=== PATIENT | male | born 1950 | race Caucasian/White ===

== ENCOUNTER 2016-10-08 14:22 | Inpatient (IN) | payer BC, MEDICARE ==
[2016-10-08] MEDS ORDERED: ONDANSETRON 4 MG/2 ML VIAL IVP STA (16:30)
[2016-10-08] MEDS ORDERED: SODIUM CHLORIDE 0.9% 500 ML IV ONE (16:30)
--- NOTE | 2016-10-08 16:51 | ED ---
General Adult HPI - General Chief complaint: Shortness of Breath Stated complaint: Poss Pneumonia Time Seen by Provider: 10/08/16 16:19 Source: patient, RN notes reviewed Mode of arrival: wheelchair Limitations: no limitations - History of Present Illness Initial comments: This a 66-year-old male presents emergency Department chief complaint of not feeling well. Patient states she's had a cold like symptoms since . Patient states that he went to his primary care physician's office today who told him he most likely has pneumonia. Patient states he has had some cough and congestion. Patient states his cough is productive with phlegm. He states that he had some blood-tinged phlegm today. This was witnessed in the emergency room. Patient denies taking any Tylenol or Motrin today and states that he's had a fever at home. Patient states he has had some chest discomfort with his cough which has resolved. Patient denies any increased shortness breath at this time. Patient states he is a former smoker. Patient states with his cough is been having frequent headaches. Patient also complains over the last few days that he's had nausea, vomiting. He was able to keep some fluids down today. - Related Data Allergies Allergy/AdvReac Type Severity Reaction Status Date / Time No Known Allergies Allergy Verified 10/08/16 14:52 Review of Systems ROS Statement: Those systems with pertinent positive or pertinent negative responses have been documented in the HPI. ROS Other: All systems not noted in ROS Statement are negative. Past Medical History Past Medical History: Diabetes Mellitus, Hypertension, Renal Disease History of Any Multi-Drug Resistant Organisms: None Reported Past Surgical History: Back Surgery, Orthopedic Surgery Additional Past Surgical History / Comment(s): Right leg, right arm. Cataract surg Past Psychological History: No Psychological Hx Reported Smoking Status: Former smoker Past Alcohol Use History: None Reported Past Drug Use History: None Reported General Exam Limitations: no limitations General appearance: alert, in no apparent distress Head exam: Present: atraumatic, normocephalic, normal inspection Eye exam: Present: normal appearance, PERRL, EOMI. Absent: scleral icterus, conjunctival injection, periorbital swelling ENT exam: Present: normal exam, normal oropharynx, mucous membranes moist, TM's normal bilaterally, normal external ear exam Neck exam: Present: normal inspection, full ROM. Absent: tenderness, meningismus, lymphadenopathy Respiratory exam: Present: rhonchi (Left lower). Absent: respiratory distress, wheezes, rales, stridor Cardiovascular Exam: Present: regular rate, normal rhythm, normal heart sounds. Absent: systolic murmur, diastolic murmur, rubs, gallop, clicks Neurological exam: Present: alert, oriented X3, CN II-XII intact Skin exam: Present: warm, dry, intact, normal color. Absent: rash Course Vital Signs 10/08/16 10/08/16 14:48 18:59 Temperature 100.9 F H Pulse Rate 96 84 Respiratory 18 18 Rate Blood Pressure 152/63 117/56 O2 Sat by Pulse 94 L 95 Oximetry Medical Decision Making - Lab Data Result diagrams: 10/08/16 17:06 10/08/16 17:06 Lab Results 10/08/16 10/08/16 10/08/16 Range/Units 17:06 17:06 17:06 WBC 16.0 H (3.8-10.6) k/uL RBC 4.54 (4.30-5.90) m/uL Hgb 12.9 L (13.0-17.5) gm/dL Hct 38.4 L (39.0-53.0) % MCV 84.7 (80.0-100.0) fL MCH 28.4 (25.0-35.0) pg MCHC 33.5 (31.0-37.0) g/dL RDW 13.7 (11.5-15.5) % Plt Count 170 (150-450) k/uL Neutrophils % (Manual) 87.0 % Band Neutrophils % 4.0 % Lymphocytes % (Manual) 3.0 % Monocytes % (Manual) 6.0 % Neutrophils # (Manual) 14.6 H (1.3-7.7) k/uL Lymphocytes # (Manual) 0.5 L (1.0-4.8) k/uL Monocytes # (Manual) 1.0 (0-1.0) k/uL Nucleated RBCs 0 (0-0) /100 WBC Polychromasia Present D-Dimer (<0.60) mg/L FEU Sodium 137 (137-145) mmol/L Potassium 4.7 (3.5-5.1) mmol/L Chloride 97 L (98-107) mmol/L Carbon Dioxide 24 (22-30) mmol/L Anion Gap 16 mmol/L BUN 38 H (9-20) mg/dL Creatinine 2.00 H (0.66-1.25) mg/dL Est GFR (MDRD) Af Amer 41 (>60 ml/min/1.73 sqM) Est GFR (MDRD) Non-Af 34 (>60 ml/min/1.73 sqM) Glucose 181 H (74-99) mg/dL Plasma Lactic Acid Kelvin (0.7-2.0) mmol/L Calcium 8.5 (8.4-10.2) mg/dL Total Bilirubin 2.3 H (0.2-1.3) mg/dL AST 38 (17-59) U/L ALT 40 (21-72) U/L Alkaline Phosphatase 85 (38-126) U/L Total Creatine Kinase 310 H (55-170) U/L CK-MB (CK-2) 2.9 H* (0.0-2.4) ng/mL CK-MB (CK-2) Rel Index 0.9 Troponin I <0.012 (0.000-0.034) ng/mL Total Protein 6.6 (6.3-8.2) g/dL Albumin 3.7 (3.5-5.0) g/dL 10/08/16 10/08/16 Range/Units 17:06 17:06 WBC (3.8-10.6) k/uL RBC (4.30-5.90) m/uL Hgb (13.0-17.5) gm/dL Hct (39.0-53.0) % MCV (80.0-100.0) fL MCH (25.0-35.0) pg MCHC (31.0-37.0) g/dL RDW (11.5-15.5) % Plt Count (150-450) k/uL Neutrophils % (Manual) % Band Neutrophils % % Lymphocytes % (Manual) % Monocytes % (Manual) % Neutrophils # (Manual) (1.3-7.7) k/uL Lymphocytes # (Manual) (1.0-4.8) k/uL Monocytes # (Manual) (0-1.0) k/uL Nucleated RBCs (0-0) /100 WBC Polychromasia D-Dimer 2.28 H (<0.60) mg/L FEU Sodium (137-145) mmol/L Potassium (3.5-5.1) mmol/L Chloride (98-107) mmol/L Carbon Dioxide (22-30) mmol/L Anion Gap mmol/L BUN (9-20) mg/dL Creatinine (0.66-1.25) mg/dL Est GFR (MDRD) Af Amer (>60 ml/min/1.73 sqM) Est GFR (MDRD) Non-Af (>60 ml/min/1.73 sqM) Glucose (74-99) mg/dL Plasma Lactic Acid Kelvin 1.8 (0.7-2.0) mmol/L Calcium (8.4-10.2) mg/dL Total Bilirubin (0.2-1.3) mg/dL AST (17-59) U/L ALT (21-72) U/L Alkaline Phosphatase (38-126) U/L Total Creatine Kinase (55-170) U/L CK-MB (CK-2) (0.0-2.4) ng/mL CK-MB (CK-2) Rel Index Troponin I (0.000-0.034) ng/mL Total Protein (6.3-8.2) g/dL Albumin (3.5-5.0) g/dL Disposition Clinical Impression: Pneumonia, Pulmonary embolism Disposition: ADMITTED IP TO THIS [facility] Condition: Stable Time of Disposition: 19:02 Addendum entered and electronically signed by Adonis Claudio, PAC 10/08/16 19:05 : EKG performed at 17:17 normal sinus rhythm, incomplete right bundle servando block rate of 89. 132, respiration 98, QT/QTC 368/447
[2016-10-08] MEDS ORDERED: ACETAMINOPHEN TAB 500 MG TAB PO STA (16:59)
[2016-10-08 17:25] LABS: CH 28.6; CHCM 33.9; HCT 38.4 % (39.0-53.0); HDW 2.76; HGB 12.9 gm/dL (13.0-17.5); Immature Gran Flag Marked; MCH 28.4 pg (25.0-35.0); MCHC 33.5 g/dL (31.0-37.0); MCV 84.7 fL (80.0-100.0); Mean Platelet Volume 8.2; RBC 4.54 m/uL (4.30-5.90); RDW 13.7 % (11.5-15.5); WBC (Perox) 16.18
[2016-10-08 17:30] LABS: Calcium 8.5 mg/dL (8.4-10.2); Potassium 4.7 mmol/L (3.5-5.1); Total Bilirubin 2.3 mg/dL (0.2-1.3); Total Protein 6.6 g/dL (6.3-8.2)
[2016-10-08] MEDS ORDERED: RX INFO: IV CONTRAST WAS GIVEN 1 EACH MISC MISCELLANE PRN (17:33)
[2016-10-08 17:53] LABS: Add Differential Manual Differential
[2016-10-08 17:54] LABS: Creatine Kinase 310 U/L (55-170); Nucleated Red Blood Cells 0 /100 WBC (0-0); Polychromasia Present; Total Cells Counted 100
[2016-10-08 18:07] LABS: Troponin I <0.012 ng/mL (0.000-0.034)
[2016-10-08 18:08] LABS: Creatine Kinase MB 2.9 ng/mL (0.0-2.4)
--- NOTE | 2016-10-08 18:37 | XR ---
EXAMINATION TYPE: XR chest 2V DATE OF EXAM: 10/08/2016 5:46 PM COMPARISON: 07/01/2012 HISTORY: Cough and congestion TECHNIQUE: Frontal and lateral views of the chest are obtained. FINDINGS: Heart and mediastinum are normal. There is coarsening of interstitial markings with some p leural thickening at the left lung base. There are no hilar masses. There are chest leads. There is n o heart failure. There is spurring in the thoracic spine. IMPRESSION: Pulmonary fibrotic changes. There is increased pleural thickening at the left lung base and left lateral chest wall compared to last exam the probably relates to fibrosis. Normal heart.
--- NOTE | 2016-10-08 18:49 | NM ---
EXAMINATION TYPE: NM pul vent and perfuse DATE OF EXAM: 10/08/2016 6:38 PM COMPARISON: NONE HISTORY: TECHNIQUE: Utilizing inhalation of 71.5 mCi Tc 99m DTPA aerosol and intravenous injection of 5.36 mC i of Tc 99m MAA, ventilation and perfusion images are acquired post injection in multiple projections . FINDINGS: There is a matching ventilation perfusion defect involving the posterior left lower lobe. There is so me pleural thickening seen in this area on the chest x-ray today . I see no mismatch. The remainder of the exam is unremarkable. IMPRESSION: There is a segmental sized matching defect in the left lower lobe that corresponds to a low to interm ediate probability of pulmonary embolism.
[2016-10-08] MEDS ORDERED: RIVAROXABAN 15 MG TAB PO STA (19:01)
[2016-10-08] MEDS ORDERED: LEVOFLOXACIN 750MG-D5W PMX 750 MG in DEXTROSE/WATER 1 150ML.BAG IVPB STA (19:01)
[2016-10-08] MEDS ORDERED: PNEUMONIA PROTOCOL UTILIZED 1 EACH MISC PO PRN (19:03)
[2016-10-08 21:09] LABS: Glucose,Whole Blood 181 mg/dL (75-99)
[2016-10-09] MEDS ORDERED: HYDROmorphone 1 MG/ML 1 ML SYRINGE IVP PRN (00:29)
[2016-10-09] MEDS ORDERED: TEMAZEPAM 15 MG CAP PO PRN (00:30)
[2016-10-09] MEDS ORDERED: MELATONIN 3 MG TABLET PO PRN (00:42)
[2016-10-09] MEDS: INSULIN GLARGINE 100 UNIT/ML 10 ML VIAL SQ SCH ×2 (01:20→20:55)
[2016-10-09 01:29] LABS: Glucose,Whole Blood 184 mg/dL (75-99)
[2016-10-09] MEDS ORDERED: AZITHROMYCIN 500 MG in SODIUM CHLORIDE 0.9% 250 ML IVPB ONE (02:00)
[2016-10-09 06:34] LABS: Glucose,Whole Blood 183 mg/dL (75-99)
[2016-10-09] MEDS: RIVAROXABAN 15 MG TAB PO SCH ×2 (06:49→18:00)
[2016-10-09] MEDS: INSULIN LISPRO (humaLOG) 300 UNIT/3 ML VIAL SQ SCH ×4 (06:50→20:55)
[2016-10-09] MEDS: FORMOTEROL FUMARATE 20 MCG/2 ML NEBU INHALATION SCH ×2 (07:02→20:09)
[2016-10-09] MEDS: LEVALBUTEROL NEB 1.25 MG/3 ML AMP INHALATION SCH ×3 (07:02→20:10)
[2016-10-09] MEDS: BUDESONIDE 1 MG/2 ML NEBU INHALATION SCH ×2 (07:02→20:09)
[2016-10-09] MEDS: IPRATROPIUM 0.5 MG/2.5 ML NEBU INHALATION SCH ×4 (07:02→20:09)
--- NOTE | 2016-10-09 07:19 | XR ---
EXAMINATION TYPE: XR chest 2V DATE OF EXAM: 10/09/2016 6:22 AM COMPARISON: 10/08/2016 HISTORY: Pneumonia FINDINGS: Bilateral areas of consolidation particular attention to the right lower lobe. The region noted. Tiny bilateral effusions atrophic and degenerative change of the spine seen. IMPRESSION: 1. Persistent bilateral infiltrate correlate for pneumonia. Follow-up to resolution to exclude underl isaias neoplasm.
[2016-10-09] MEDS ORDERED: PANTOPRAZOLE 40 MG TABLET PO SCH (07:30)
[2016-10-09] MEDS ORDERED: NON-FORMULARY DRUG (Omega-3 Fatty Acids/Fish Oil [Fish Oil 1,000 Mg Softgel] 1 CAP) PO SCH (09:00)
[2016-10-09] MEDS ORDERED: NON-FORMULARY DRUG (Turmeric Root Extract [Turmeric] 500 MG) PO SCH (09:00)
[2016-10-09] MEDS ORDERED: NON-FORMULARY DRUG (Glucosamine Hcl/Chondr Su A Na [Osteo Bi-Flex Caplet] 1 TAB) PO SCH (09:00)
[2016-10-09] MEDS: ACETAMINOPHEN TAB 325 MG TAB PO PRN ×2 (09:24→20:44)
[2016-10-09] MEDS: LOSARTAN 25 MG TAB PO SCH (09:24)
[2016-10-09] MEDS: amLODIPine 5 MG TAB PO SCH (09:25)
[2016-10-09] MEDS: ATENOLOL 50 MG TAB PO SCH ×2 (09:25→20:44)
[2016-10-09] MEDS: CHOLECALCIFEROL 1,000 UNIT TAB PO SCH (09:27)
[2016-10-09] MEDS: ZINC GLUCONATE 50 MG TAB PO SCH (09:27)
[2016-10-09] MEDS: ASCORBIC ACID 500 MG TAB PO SCH (09:27)
[2016-10-09] MEDS: MULTIVITAMINS, THERA 1 EACH TAB PO SCH (09:27)
[2016-10-09] MEDS: DULoxetine HCL 60 MG CAPSULE.DR PO SCH ×2 (09:27→20:44)
[2016-10-09] MEDS: B COMPLEX-VIT C-VIT E-ZINC 1 EACH TAB PO SCH (09:27)
[2016-10-09] MEDS: ALPRAZolam 0.5 MG TAB PO PRN ×2 (10:13→21:46)
[2016-10-09 12:45] LABS: Glucose,Whole Blood 284 mg/dL (75-99)
[2016-10-09 13:57] LABS: Basophils % (A) 0 %; CH 28.3; Eosinophils % (A) 0 %; HCT 35.3 % (39.0-53.0); HDW 2.78; HGB 11.7 gm/dL (13.0-17.5); Luc # (Auto) 0.07; Luc % (Auto) 1; Lymphocytes # (A) 0.6 k/uL (1.0-4.8); Lymphocytes % (A) 4 %; MCH 28.4 pg (25.0-35.0); MCV 86.2 fL (80.0-100.0); Mean Platelet Volume 8.6; Monocytes # (A) 0.2 k/uL (0-1.0); Monocytes % (A) 2 %; Neutrophils % (A) 93 %; RDW 13.5 % (11.5-15.5); WBC 12.9 k/uL (3.8-10.6)
[2016-10-09 14:06] LABS: Calcium 8.3 mg/dL (8.4-10.2)
[2016-10-09 14:09] LABS: Potassium 4.1 mmol/L (3.5-5.1)
--- NOTE | 2016-10-09 15:52 | HP ---
DATE OF ADMISSION: 10/08/2016 Please note I am covering for Dr. Ishmael Simons. CHIEF COMPLAINT: Shortness of breath as well as some cough and fever. HISTORY OF PRESENT ILLNESS: This 66-year-old gentleman with a past history of COPD, diabetes and hypertension, history of back surgery, DJD being followed by Dr. Ishmael Simons. The patient not feeling well for the past several days. Patient initially had a cold which the patient received from his family members. The patient had a runny nose and feeling cold and subsequently patient had a fever, flushing and feeling tired, a cough, sputum and multiple other symptomatology and the patient came to [facility], admitted for further evaluation. Patient also had some blood-tinged sputum yesterday. Patient feeling hot and cold and patient was found to have right lower lobe pneumonia. Patient admitted for further evaluation and treatment. There is no history of hematochezia, melena. No history of any rash at this time. No history of recent travel. Influenza is being checked. PAST MEDICAL HISTORY: History of COPD, diabetes mellitus, hypertension, history of renal disease, history of back surgery, DJD. Medications prior to admission included: 1. Norvasc 5 mg p.o. daily. 3. Vitamin B 1 p.o. daily. 4. Turmeric 500 mcg p.o. daily. 5. Flomax 5 mg p.o. daily. 6. Zocor 40 mg p.o. every 6 hours. 7. Prilosec 20 mg a.c. b.i.d. 8. Fish oil 1 p.o. daily. 9. Multivitamin 1 p.o. daily. 10. Singulair 10 mg q.h.s. 11. Melatonin 3 mg q.h.s. 12. Cozaar 25 mg p.o. daily. 13. Apidra. 14. ACTH. 15. Lantus 50 units subcu q.h.s. 16. Osteo Bi-Flex 1 b.i.d. 17. Cymbalta 60 mg p.o. daily. 18. Vitamin D3 5000 units. 19. Rocaltrol 0.25 mcg q. 20. Tenormin 50 mg p.o. b.i.d. 21. Vitamin C 500 mg p.o. daily. 22. Xanax 0.5 b.i.d. p.r.n. Allergies are none. FAMILY HISTORY: No history of heart disease, strokes in the family. SOCIAL HISTORY: Previous history of smoking. No history of any smoking or alcohol intake. REVIEW OF SYSTEMS: HEENT: As mentioned earlier. CARDIOVASCULAR: No angina, palpitations. RESPIRATORY: As mentioned earlier. GI: No nausea. : No dysuria. NERVOUS: No numbness or weakness. ALLERGY/IMMUNOLOGY: No asthma or hay fever. MUSCULOSKELETAL: As mentioned earlier. HEMATOLOGY/ONCOLOGY: No history of anemia. ENDOCRINE: As mentioned earlier. CONSTITUTIONAL: As mentioned earlier. DERMATOLOGY: Negative. PSYCHIATRY: As mentioned earlier. PHYSICAL EXAMINATION: Alert and oriented x3. Pulse 84, blood pressure 170/60, respirations 18, temperature 97.9, pulse ox 94% on 2L. HEENT: Conjunctivae normal. Oral mucosa moist. Face is flushed. NECK: No jugular venous distention. No carotid bruit. No lymph node enlargement. CARDIOVASCULAR: S1 and S2 muffled. No S3. No S4. RESPIRATORY: Breath sounds diminished in the bases. Bilateral scattered rhonchi and crackles. Abdomen is soft, obese, nontender. No mass palpable. LEGS: No edema. No swelling. NERVOUS SYSTEM: Higher functions as mentioned. Moves all 4 limbs. No focal motor or sensory deficits. LYMPHATIC: No lymph node palpable in neck, axillae or groin. SKIN: No ulcer, rash or bleeding. Lab studies at this time show WBC 16. D-dimer is 2.28. Creatinine is 2. Creatine kinase 310. ASSESSMENT: 1. Acute right lower pneumonia, community-acquired with possible sepsis. 2. Increased WBC. 3. Anemia, normocytic. 4. Increased D-dimer with no evidence of pulmonary embolus. 5. Increased creatinine with possible acute renal failure, possible prerenal acute tubular necrosis. 6. Increased bilirubin. 7. Increased creatinine kinase. 8. Obesity with a body mass index of 36.5. 9. History of chronic obstructive pulmonary disease. 10. Diabetes mellitus type 2. 11. Hypertension. 12. Renal disease. 13. Degenerative joint disease. 14. History of cataract surgery. 15. Remote history of nicotine dependence. 16. FULL CODE. RECOMMENDATIONS AND DISCUSSION: In this 66-year-old gentleman who presented with multiple complex medical issues, we will monitor the patient closely. Continue the current medications. Continue with symptomatic treatment. Will initiate broad-spectrum IV antibiotics. Otherwise, I recommend Mycoplasma, Legionella studies and influenza studies, DVT prophylaxis. See orders for further details. Resume the home medications. Guarded prognosis because of complex medical issues. Further recommendations to follow. MTDD
[2016-10-09 16:56] LABS: Glucose,Whole Blood 80 mg/dL (75-99)
--- NOTE | 2016-10-09 16:57 | CT ---
EXAMINATION TYPE: CT chest wo con DATE OF EXAM: 10/09/2016 4:41 PM COMPARISON: NONE HISTORY: Consolidation right lower lobe. CT DLP: 421 mGycm Automated exposure control for dose reduction was used. FINDINGS: Multiple axial sections were obtained from the thoracic inlet to the diaphragm with no contrast. Exam was performed prone and supine. There is airspace patchy consolidation in both lower lobes in the paraspinal region. The upper lung f ields are fairly clear. Heart appears enlarged. There is no pericardial effusion. There is no pleural effusion. I see no mediastinal adenopathy. There are no definite hilar masses. Right lower lobe cons olidation is mostly in the superior segment. I do not see a pulmonary mass. IMPRESSION: THERE IS EVIDENCE OF BILATERAL LOWER LOBE PNEUMONIA WITH AIR BRONCHOGRAMS IN PULMONARY CONSOLIDATION. NO DEFINITE PULMONARY MASS IS SEEN. I DO NOT SEE ANY SIGNIFICANT INTERSTITIAL LUNG DISEASE. CARDIOME BANDAR.
[2016-10-09] MEDS: PANTOPRAZOLE 40 MG TABLET PO SCH (18:00)
[2016-10-09] MEDS ORDERED: LEVOFLOXACIN 750MG-D5W PMX 750 MG in DEXTROSE/WATER 1 150ML.BAG IVPB SCH (19:00)
[2016-10-09] MEDS: TAMSULOSIN 0.4 MG CAP.ER.24H PO SCH (20:44)
[2016-10-09] MEDS: MONTELUKAST 10 MG TAB PO SCH (20:44)
[2016-10-09] MEDS: ATORVASTATIN 20 MG TAB PO SCH (20:44)
[2016-10-09 20:53] LABS: Glucose,Whole Blood 94 mg/dL (75-99)
[2016-10-09] MEDS: cefTRIAXone 2,000 MG in SODIUM CHLORIDE 0.9% 100 ML IVPB SCH (21:45)
[2016-10-10 05:55] LABS: Glucose,Whole Blood 107 mg/dL (75-99)
[2016-10-10 06:48] LABS: Basophils % (A) 0 %; CH 29.2; CHCM 33.1; Eosinophils # (A) 0.1 k/uL (0-0.7); Eosinophils % (A) 1 %; HDW 2.88; HGB 11.6 gm/dL (13.0-17.5); Luc # (Auto) 0.12; Luc % (Auto) 1; Lymphocytes # (A) 0.8 k/uL (1.0-4.8); Lymphocytes % (A) 5 %; MCH 27.8 pg (25.0-35.0); MCHC 31.3 g/dL (31.0-37.0); MCV 88.8 fL (80.0-100.0); Monocytes # (A) 0.6 k/uL (0-1.0); Monocytes % (A) 4 %; Neutrophils # (A) 14.4 k/uL (1.3-7.7); Neutrophils % (A) 90 %; RBC 4.16 m/uL (4.30-5.90); WBC 16.1 k/uL (3.8-10.6)
[2016-10-10] MEDS: RIVAROXABAN 15 MG TAB PO SCH ×2 (07:01→18:28)
[2016-10-10] MEDS: PANTOPRAZOLE 40 MG TABLET PO SCH ×2 (07:01→18:28)
[2016-10-10] MEDS: INSULIN LISPRO (humaLOG) 300 UNIT/3 ML VIAL SQ SCH ×4 (07:01→20:28)
[2016-10-10 07:04] LABS: Calcium 8.7 mg/dL (8.4-10.2); Potassium 3.9 mmol/L (3.5-5.1)
[2016-10-10] MEDS: FORMOTEROL FUMARATE 20 MCG/2 ML NEBU INHALATION SCH ×2 (08:45→19:51)
[2016-10-10] MEDS: IPRATROPIUM 0.5 MG/2.5 ML NEBU INHALATION SCH ×4 (08:45→19:51)
[2016-10-10] MEDS: BUDESONIDE 1 MG/2 ML NEBU INHALATION SCH ×2 (08:45→19:51)
[2016-10-10] MEDS: LEVALBUTEROL NEB 1.25 MG/3 ML AMP INHALATION SCH ×3 (08:47→19:51)
[2016-10-10] MEDS: AZITHROMYCIN 500 MG in SODIUM CHLORIDE 0.9% 250 ML IVPB SCH (09:30)
[2016-10-10] MEDS: ASCORBIC ACID 500 MG TAB PO SCH (09:30)
[2016-10-10] MEDS: amLODIPine 5 MG TAB PO SCH (09:30)
[2016-10-10] MEDS: MULTIVITAMINS, THERA 1 EACH TAB PO SCH (09:31)
[2016-10-10] MEDS: LOSARTAN 25 MG TAB PO SCH (09:31)
[2016-10-10] MEDS: DULoxetine HCL 60 MG CAPSULE.DR PO SCH ×2 (09:31→20:23)
[2016-10-10] MEDS: CHOLECALCIFEROL 1,000 UNIT TAB PO SCH (09:31)
[2016-10-10] MEDS: ZINC GLUCONATE 50 MG TAB PO SCH (09:31)
[2016-10-10] MEDS: ATENOLOL 50 MG TAB PO SCH ×2 (09:32→20:23)
[2016-10-10 11:34] LABS: Glucose,Whole Blood 113 mg/dL (75-99)
--- NOTE | 2016-10-10 12:26 | PN ---
DATE OF SERVICE: 10/09/2016 I am covering for Dr. Ishmael Simons This 66 shortness of breath and cough found to have acute right lower lobe pneumonia. Pulmonary embolism also suspected and the patient was started on Xarelto from the ER. CT of the chest was done on recommendations of Dr. Sutherland which recommended evidence of bilateral lower lobe pneumonia with air bronchogram and pulmonary consultation. No evidence of pulmonary embolism was seen. The patient is being closely monitored. PAST MEDICAL HISTORY: Reviewed. REVIEW OF SYSTEMS: CARDIOVASCULAR: No angina or palpitations. RESPIRATORY: As mentioned earlier. GASTROINTESTINAL: As mentioned earlier. GENITOURINARY: No dysuria. CENTRAL NERVOUS SYSTEM: As mentioned earlier. Current medications are reviewed and include: 1. Tylenol 650 q.6 p.r.n. 2. Xanax 0.5 b.i.d. 3. Norvasc. 4. Vitamin C. 5. Tenormin. 6. Lipitor. 7. Zithromax. 8. Rocaltrol. 9. Rocephin. 10. Vitamin D3. 11. Perforomist. 12. Dilaudid. 13. Lantus. 14. Atrovent. 15. Xopenex. 16. Cozaar. 17. Melatonin. 18. Singulair. 19. Multivitamins. 20. Protonix. 21. Xarelto. PHYSICAL EXAMINATION: The patient is alert and oriented times three. Pulse 78, bp120/60. Respiratory rate 19, temperature 98.6. Pulse ox 94% on room air. HEENT: Conjunctivae normal. Oral mucosa moist. NECK: No jugular venous distention. No carotid bruit. No lymph node enlargement. CARDIOVASCULAR: S1, S2 muffled. No S3, no S4. RESPIRATORY: Breath sounds diminished at the bases. Bilateral scattered rhonchi and crackles. ABDOMEN: Soft, obese, nontender. No mass palpable. LEGS: No edema. No swelling. Nervous system: No focal deficit. LABS: WBC 12.5, hemoglobin 11.6, creatinine is 1.9, glucose 303 and 80. ASSESSMENT: 1. Acute bilateral pneumonia, right more than left with possible community acquired with possible sepsis, present on admission. 2. Increased WBC. 3. Anemia, normocytic, 4. Increased d-dimer with no evidence of pulmonary embolism. 5. Increased creatinine with possible acute renal failure, possibly prerenal acute tubular necrosis 6. Increased bilirubin. 7. Increased creatinine kinase. 8. Obesity, body mass index 36.5. 9. History of chronic obstructive pulmonary disease. 10. Diabetes mellitus type 2. 11. Hypertension. 12. History of chronic renal disease. 13. Degenerative joint disease. 14. History of cataract surgery. 15. Remote history of nicotine dependence. 16. FULL CODE. RECOMMENDATIONS AND DISCUSSION: In this 60-year-old gentleman who presented with multiple complex medical issues, we will monitor the patient closely, continue the current medications, continue symptomatic treatment, continue with broad spectrum antibiotics. Follow the cultures. Otherwise, the most recent chest x-ray done today this morning showed persistent bilateral infiltrates. Otherwise, creatinine is 1.90 at this time. I would recommend continued follow up with antibiotics and continue the rest of the medications and Xarelto per Dr. Sutherland, will be evaluated per Dr. Sutherland. Prognosis guarded because of multiple complex medical issues. Discussed with the patient who understands and agrees. Further recommendations to follow. MTDD
--- NOTE | 2016-10-10 12:37 | P.CNPUL ---
History of Present Illness Consult date: 10/09/16 Requesting physician: Kathryn Hayes Reason for consult: pneumonia Chief complaint: Shortness of breath, productive cough, and fever. History of present illness: This is a 66-year-old white male with history of multiple medical problems including COPD, diabetes, hypertension, chronic renal disease, patient presented with several days history of cough, fever, weakness, and not feeling well. Patient described her cough as productive with yellow phlegm, no hemoptysis, no chest pain. Patient was hoping that his symptoms will resolve on their own because he felt they were like flulike symptoms. But his symptoms seemed to progress and get worse. Hence he presented to the ER with mostly worsening shortness of breath and cough as well as fever and chills. Chest x- ray showed coarse interstitial markings and pleural thickening mostly at the left base. However CT of the chest which I ordered upon my evaluation showed severe bilateral pneumonia with air bronchograms in both lower lobes. And in the paraspinal region. Most of the findings in the right lower lobe were noted to be in the superior segment. Patient was placed on broad-spectrum antibiotics for community-acquired pneumonia and is presently on Rocephin and Zithromax. Over the last 24 hours, the patient has made a slight improvement. Review of Systems 12 point review of systems were obtained, please refer to pertinent positives and negatives in HPI Past Medical History Past Medical History: COPD, Diabetes Mellitus, Hypertension, Renal Disease History of Any Multi-Drug Resistant Organisms: None Reported Past Surgical History: Back Surgery, Orthopedic Surgery Additional Past Surgical History / Comment(s): Right leg, right arm. Cataract surg Past Anesthesia/Blood Transfusion Reactions: No Reported Reaction Past Psychological History: No Psychological Hx Reported Smoking Status: Former smoker Past Alcohol Use History: None Reported Past Drug Use History: None Reported Medications and Allergies Home Medications Medication Instructions Recorded Confirmed Type ALPRAZolam [Xanax] 0.5 mg PO BID PRN 10/08/16 10/08/16 History Ascorbic Acid [Vitamin C] 500 mg PO DAILY 10/08/16 10/08/16 History Atenolol [Tenormin] 50 mg PO BID 10/08/16 10/08/16 History Calcitriol [Rocaltrol] 0.25 mcg PO TUFR 10/08/16 10/08/16 History Cholecalciferol [Vitamin D3] 5,000 unit PO DAILY 10/08/16 10/08/16 History DULoxetine HCL [Cymbalta] 60 mg PO BID 10/08/16 10/08/16 History Glucosamine HCl/Chondr Ross A Na 1 tab PO BID 10/08/16 10/08/16 History [Osteo Bi-Flex Caplet] Insulin Glargine [Lantus] 50 unit SQ HS 10/08/16 10/08/16 History Insulin Glulisine [Apidra] See Protocol SQ AC-TID 10/08/16 10/08/16 History Losartan [Cozaar] 25 mg PO DAILY 10/08/16 10/08/16 History Melatonin 3 mg PO HS PRN 10/08/16 10/08/16 History Montelukast [Singulair] 10 mg PO HS 10/08/16 10/08/16 History Multivitamins, Thera [Multivitamin] 1 tab PO DAILY 10/08/16 10/08/16 History [place]-3 Fatty Acids/Fish Oil [Fish 1 cap PO DAILY 10/08/16 10/08/16 History Oil 1,000 mg Softgel] Omeprazole [PriLOSEC] 20 mg PO AC-BID 10/08/16 10/08/16 History Simvastatin [Zocor] 40 mg PO HS 10/08/16 10/08/16 History Tamsulosin HCl [Flomax] 0.4 mg PO HS 10/08/16 10/08/16 History Turmeric Root Extract [Turmeric] 500 mg PO DAILY 10/08/16 10/08/16 History Vitamin B Complex 1 cap PO DAILY 10/08/16 10/08/16 History Zinc 50 mg PO DAILY 10/08/16 10/08/16 History amLODIPine [Norvasc] 5 mg PO DAILY 10/08/16 10/08/16 History Allergies Allergy/AdvReac Type Severity Reaction Status Date / Time No Known Allergies Allergy Verified 10/08/16 19:25 Physical Exam Vitals: Vital Signs Temp Pulse Pulse Pulse Resp BP BP 10/10/16 09:24 99.3 F 76 12 130/59 10/10/16 09:05 76 10/10/16 08:57 76 10/10/16 08:55 80 10/10/16 08:45 80 10/10/16 04:00 98.1 F 72 18 131/57 10/10/16 00:00 97.6 F 82 18 142/78 10/09/16 20:00 97.6 F 82 18 149/70 10/09/16 16:00 98.6 F 81 18 135/65 10/09/16 13:13 73 10/09/16 12:59 73 Pulse Ox 10/10/16 09:24 95 10/10/16 09:05 10/10/16 08:57 10/10/16 08:55 10/10/16 08:45 10/10/16 04:00 92 L 10/10/16 00:00 92 L 10/09/16 20:00 92 L 10/09/16 16:00 94 L 10/09/16 13:13 10/09/16 12:59 Intake and Output 10/09/16 10/10/16 10/10/16 22:59 06:59 14:59 Intake Total 115 Output Total 400 700 Balance -285 -700 Intake: Oral 115 Output: Urine 400 700 Other: Voiding Method Toilet Toilet Urinal Urinal Weight 119 kg Physical Exam: Revealed a 66-year-old white male slightly anxious but in no distress. HEENT:[Neck is supple.] [No neck masses.] [No thyromegaly.] [No JVD.] Chest: [Crackles and rhonchi noted at the bases bilaterally Cardiac Exam: [Normal S1 and S2, no S3 gallop, no murmur.] Abdomen: [Soft, nontender, no megaly, no rebound, no guarding, normal bowel sounds.] Extremities: [No clubbing, no edema, no cyanosis.] Neurological Exam: [No focal neurologic deficit.] Results - Laboratory Findings CBC and BMP: 10/10/16 06:11 10/10/16 06:11 PT/INR, D-dimer D-Dimer 2.28 mg/L FEU (<0.60) H 10/08/16 17:06 Abnormal lab findings: Abnormal Labs 10/08/16 10/09/16 10/09/16 21:08 01:09 06:28 WBC RBC Hgb Hct Neutrophils # Lymphocytes # BUN Creatinine Glucose POC Glucose (mg/dL) 181 H 184 H 183 H Calcium 10/09/16 10/09/16 10/09/16 12:43 13:34 13:34 WBC 12.9 H RBC 4.10 L Hgb 11.7 L Hct 35.3 L Neutrophils # 12.0 H Lymphocytes # 0.6 L BUN 39 H Creatinine 1.90 H Glucose 303 H POC Glucose (mg/dL) 284 H Calcium 8.3 L 10/10/16 10/10/16 10/10/16 05:51 06:11 06:11 WBC 16.1 H RBC 4.16 L Hgb 11.6 L Hct 37.0 L Neutrophils # 14.4 H Lymphocytes # 0.8 L BUN 37 H Creatinine 2.00 H Glucose 119 H POC Glucose (mg/dL) 107 H Calcium 10/10/16 11:30 WBC RBC Hgb Hct Neutrophils # Lymphocytes # BUN Creatinine Glucose POC Glucose (mg/dL) 113 H Calcium - Diagnostic Findings CT scan - chest: image reviewed (Bibasilar pneumonia/consolidation noted with air bronchogram.) Assessment and Plan Plan: Impression: 1 acute by basilar pneumonia, community-acquired, possibly gram-negative considering the patient's history of COPD. 2 multiple comorbidities including COPD, acute on chronic renal failure, diabetes type 2, hypertension, degenerative joint disease, and remote history of smoking. Recommendation: Continue present treatment plan including updrafts in the form of albuterol and Atrovent, Pulmicort, Perforomist, continue Rocephin and Zithromax, consider adding Solu-Medrol if the patient develops any worsening wheezing. We'll continue to follow, and repeat chest x-ray in the next couple of days. Time with Patient: Greater than 30
--- NOTE | 2016-10-10 12:40 | P.PN ---
Subjective Principal diagnosis: By basilar pneumonia This is a 66-year-old white male with history of multiple medical problems including COPD, diabetes, hypertension, chronic renal disease, patient presented with several days history of cough, fever, weakness, and not feeling well. Patient described her cough as productive with yellow phlegm, no hemoptysis, no chest pain. Patient was hoping that his symptoms will resolve on their own because he felt they were like flulike symptoms. But his symptoms seemed to progress and get worse. Hence he presented to the ER with mostly worsening shortness of breath and cough as well as fever and chills. Chest x- ray showed coarse interstitial markings and pleural thickening mostly at the left base. However CT of the chest which I ordered upon my evaluation showed severe bilateral pneumonia with air bronchograms in both lower lobes. And in the paraspinal region. Most of the findings in the right lower lobe were noted to be in the superior segment. Patient was placed on broad-spectrum antibiotics for community-acquired pneumonia and is presently on Rocephin and Zithromax. Over the last 24 hours, the patient has made a slight improvement. Reevaluated today again, patient is feeling a bit better, breathing a bit easier. He had a T-max of 99.3. Hemodynamically stable continues to have leukocytosis with WBC of 16.1, renal profile showed a BUN of 57 creatinine of 2.0. Otherwise labs are relatively unremarkable. Clinically the patient is showing some improvement. Objective - Vital Signs Vital signs: Vital Signs Temp 99.3 F 10/10/16 09:24 Pulse 76 10/10/16 09:24 Resp 12 10/10/16 09:24 BP 130/59 10/10/16 09:24 Pulse Ox 95 10/10/16 09:24 Intake & Output 10/09/16 10/10/16 10/10/16 18:59 06:59 18:59 Intake Total 395 Output Total 500 1100 Balance -105 -1100 Weight 119 kg Intake: Oral 395 Output: Urine 500 1100 Other: Voiding Method Toilet Urinal - Exam Physical Exam: Revealed a 66-year-old white male slightly anxious but in no distress. HEENT:[Neck is supple.] [No neck masses.] [No thyromegaly.] [No JVD.] Chest: [Crackles and rhonchi noted at the bases bilaterally Cardiac Exam: [Normal S1 and S2, no S3 gallop, no murmur.] Abdomen: [Soft, nontender, no megaly, no rebound, no guarding, normal bowel sounds.] Extremities: [No clubbing, no edema, no cyanosis.] Neurological Exam: [No focal neurologic deficit.] - Labs CBC & Chem 7: 10/10/16 06:11 10/10/16 06:11 Labs: Abnormal Lab Results - Last 24 Hours (Table) 10/09/16 10/09/16 10/09/16 Range/Units 12:43 13:34 13:34 WBC 12.9 H (3.8-10.6) k/uL RBC 4.10 L (4.30-5.90) m/uL Hgb 11.7 L (13.0-17.5) gm/dL Hct 35.3 L (39.0-53.0) % Neutrophils # 12.0 H (1.3-7.7) k/uL Lymphocytes # 0.6 L (1.0-4.8) k/uL BUN 39 H (9-20) mg/dL Creatinine 1.90 H (0.66-1.25) mg/dL Glucose 303 H (74-99) mg/dL POC Glucose (mg/dL) 284 H (75-99) mg/dL Calcium 8.3 L (8.4-10.2) mg/dL 10/10/16 10/10/16 10/10/16 Range/Units 05:51 06:11 06:11 WBC 16.1 H (3.8-10.6) k/uL RBC 4.16 L (4.30-5.90) m/uL Hgb 11.6 L (13.0-17.5) gm/dL Hct 37.0 L (39.0-53.0) % Neutrophils # 14.4 H (1.3-7.7) k/uL Lymphocytes # 0.8 L (1.0-4.8) k/uL BUN 37 H (9-20) mg/dL Creatinine 2.00 H (0.66-1.25) mg/dL Glucose 119 H (74-99) mg/dL POC Glucose (mg/dL) 107 H (75-99) mg/dL Calcium (8.4-10.2) mg/dL 10/10/16 Range/Units 11:30 WBC (3.8-10.6) k/uL RBC (4.30-5.90) m/uL Hgb (13.0-17.5) gm/dL Hct (39.0-53.0) % Neutrophils # (1.3-7.7) k/uL Lymphocytes # (1.0-4.8) k/uL BUN (9-20) mg/dL Creatinine (0.66-1.25) mg/dL Glucose (74-99) mg/dL POC Glucose (mg/dL) 113 H (75-99) mg/dL Calcium (8.4-10.2) mg/dL Assessment and Plan Plan: Impression: 1 acute by basilar pneumonia, community-acquired, possibly gram-negative considering the patient's history of COPD. 2 multiple comorbidities including COPD, acute on chronic renal failure, diabetes type 2, hypertension, degenerative joint disease, and remote history of smoking. Recommendation: Continue present treatment plan including updrafts in the form of albuterol and Atrovent, Pulmicort, Perforomist, continue Rocephin and Zithromax, consider adding Solu-Medrol if the patient develops any worsening wheezing. We'll continue to follow, and repeat chest x-ray in the next couple of days. Time with Patient: Less than 30
[2016-10-10] MEDS: B COMPLEX-VIT C-VIT E-ZINC 1 EACH TAB PO SCH (13:02)
[2016-10-10] MEDS: ACETAMINOPHEN TAB 325 MG TAB PO PRN (14:19)
[2016-10-10 16:59] LABS: Glucose,Whole Blood 151 mg/dL (75-99)
[2016-10-10] MEDS: ALPRAZolam 0.5 MG TAB PO PRN (18:44)
[2016-10-10] MEDS: ATORVASTATIN 20 MG TAB PO SCH (20:23)
[2016-10-10] MEDS: TAMSULOSIN 0.4 MG CAP.ER.24H PO SCH (20:23)
[2016-10-10] MEDS: MONTELUKAST 10 MG TAB PO SCH (20:23)
[2016-10-10] MEDS: INSULIN GLARGINE 100 UNIT/ML 10 ML VIAL SQ SCH (20:24)
[2016-10-10 20:28] LABS: Glucose,Whole Blood 165 mg/dL (75-99)
[2016-10-10] MEDS: cefTRIAXone 2,000 MG in SODIUM CHLORIDE 0.9% 100 ML IVPB SCH (21:30)
[2016-10-11 05:59] LABS: Glucose,Whole Blood 67 mg/dL (75-99)
[2016-10-11] MEDS: INSULIN LISPRO (humaLOG) 300 UNIT/3 ML VIAL SQ SCH ×4 (06:02→21:30)
[2016-10-11 06:11] LABS: Glucose,Whole Blood 64 mg/dL (75-99)
[2016-10-11] MEDS: RIVAROXABAN 15 MG TAB PO SCH ×2 (06:41→17:46)
[2016-10-11] MEDS: PANTOPRAZOLE 40 MG TABLET PO SCH ×2 (06:42→17:46)
[2016-10-11 06:55] LABS: Glucose,Whole Blood 80 mg/dL (75-99)
[2016-10-11 07:00] LABS: Basophils % (A) 0 %; CH 28.2; CHCM 32.8; Eosinophils # (A) 0.4 k/uL (0-0.7); Eosinophils % (A) 3 %; HCT 35.7 % (39.0-53.0); HDW 2.91; HGB 11.6 gm/dL (13.0-17.5); Luc # (Auto) 0.16; Luc % (Auto) 1; Lymphocytes # (A) 1.3 k/uL (1.0-4.8); Lymphocytes % (A) 11 %; MCH 28.2 pg (25.0-35.0); MCHC 32.6 g/dL (31.0-37.0); MCV 86.4 fL (80.0-100.0); Mean Platelet Volume 7.9; Monocytes # (A) 0.6 k/uL (0-1.0); Monocytes % (A) 5 %; Neutrophils # (A) 9.7 k/uL (1.3-7.7); Neutrophils % (A) 80 %; RBC 4.13 m/uL (4.30-5.90); RDW 13.7 % (11.5-15.5); WBC 12.2 k/uL (3.8-10.6); WBC (Perox) 12.67
[2016-10-11 07:36] LABS: Calcium 8.6 mg/dL (8.4-10.2); Potassium 3.9 mmol/L (3.5-5.1)
[2016-10-11] MEDS: LEVALBUTEROL NEB 1.25 MG/3 ML AMP INHALATION SCH ×3 (08:05→20:00)
[2016-10-11] MEDS: BUDESONIDE 1 MG/2 ML NEBU INHALATION SCH ×2 (08:05→19:59)
[2016-10-11] MEDS: IPRATROPIUM 0.5 MG/2.5 ML NEBU INHALATION SCH ×4 (08:05→20:00)
[2016-10-11] MEDS: FORMOTEROL FUMARATE 20 MCG/2 ML NEBU INHALATION SCH ×2 (08:06→20:00)
[2016-10-11] MEDS: ASCORBIC ACID 500 MG TAB PO SCH (09:13)
[2016-10-11] MEDS: CHOLECALCIFEROL 1,000 UNIT TAB PO SCH (09:13)
[2016-10-11] MEDS: amLODIPine 5 MG TAB PO SCH (09:13)
[2016-10-11] MEDS: ATENOLOL 50 MG TAB PO SCH ×2 (09:13→20:30)
[2016-10-11] MEDS: AZITHROMYCIN 500 MG in SODIUM CHLORIDE 0.9% 250 ML IVPB SCH (09:14)
[2016-10-11] MEDS: MULTIVITAMINS, THERA 1 EACH TAB PO SCH (09:14)
[2016-10-11] MEDS: ZINC GLUCONATE 50 MG TAB PO SCH (09:14)
[2016-10-11] MEDS: LOSARTAN 25 MG TAB PO SCH (09:14)
[2016-10-11] MEDS: DULoxetine HCL 60 MG CAPSULE.DR PO SCH ×2 (09:14→20:31)
[2016-10-11] MEDS: B COMPLEX-VIT C-VIT E-ZINC 1 EACH TAB PO SCH (11:22)
--- NOTE | 2016-10-11 11:51 | PN ---
DATE OF SERVICE: 10/10/2016 I am covering for Dr. Ishmael Simons. This 66-year-old gentleman who was admitted with shortness of breath and cough was thought to have pneumonia. Patient thought to have possibly bibasilar pneumonia. The patient also had features of sepsis also. The patient has multiple comorbidities. Patient is on broad spectrum IV antibiotics. Dr. Sutherland is following the patient closely. PAST MEDICAL HISTORY: Reviewed. REVIEW OF SYSTEMS: CARDIOVASCULAR No angina. RESPIRATORY: As mentioned earlier. GI: As mentioned earlier. : No dysuria. NERVOUS SYSTEM: No numbness or weakness. Current medications are: 1. Tylenol 650 q.6 p.r.n. 2. Xanax 0.5 b.i.d. 3. Norvasc 5 mg p.o. daily. 4. Vitamin C 500 mg p.o. daily. 5. Tenormin 50 mg p.o. daily. 6. Lipitor 20 mg q.h.s. 7. Zithromax 500 mg IV daily. 8. Pulmicort 1 mg b.i.d. 10. Zosyn 1 gram IV daily. 11. Vitamin D3, 5000. 12. Cymbalta 60 mg p.o. b.i.d. 13. Perforomist 20 mcg b.i.d. 14. Dilaudid 0.5 mg q.6 p.r.n. 15. Lantus 50 units subcu q.h.s. 16. Humalog scale. 17. Xopenex 1.25 t.i.d. 18. Cozaar 25 mg daily. 19. Melatonin 3 mg q.h.s. p.r.n. 20. Singulair. 21. Multivitamin. 22. Protonix. 23. Xarelto. 24. Flomax. 25. Z-BEC. PHYSICAL EXAMINATION: Patient is alert and oriented x3. Pulse 66, blood pressure 130/72, respirations 14, temperature 97.9, pulse ox 90% on 2-L. HEENT: Conjunctivae normal. Oral mucosa moist. NECK: No jugular venous distention. No carotid bruit. No lymph node enlargement. CARDIOVASCULAR: S1 and S2, muffled. RESPIRATORY: Breath sounds diminished at the bases. A few scattered rhonchi and crackles, left more than the right. ABDOMEN: Soft, obese, nontender. LEGS: No edema, no swelling. NERVOUS SYSTEM: Higher function as mentioned. Moves all four limbs. No focal motor deficits. LYMPHATIC: No lymphadenopathy in the neck, axillae or groin. SKIN: No ulcer, rash or bleeding. LABS: WBC 16.9, hemoglobin 11.6. Creatinine is 2, Accu-Cheks noted. ASSESSMENT: 1. Acute bilateral pneumonia, right more than left, with possible gram-negative with possible sepsis, present on admission. 2. Increased WBC secondary to sepsis. 3. Anemia, normocytic, 4. Increased d-dimer with no evidence of pulmonary embolus. 5. Increased creatinine with possible acute renal failure, possible prerenal acute tubular necrosis. 6. Increased bilirubin. 7. Increased creatine kinase. 8. Obesity, body mass index of 36.5. 9. History of chronic obstructive pulmonary disease. 10. Diabetes mellitus type 2. 11. Hypertension. 12. History of chronic renal disease. 13. Degenerative joint disease. 14. History of cataract surgery. 15. Remote history of nicotine dependence. 16. FULL CODE. RECOMMENDATIONS AND DISCUSSION: In this 66-year-old gentleman who presented with multiple complex medical issues, will monitor the patient closely. Continue the current bronchodilators. Continue incentive spirometry and antibiotic treatment. Dr. Sutherland's input appreciated. Cultures are negative so far. Will recommend repeat labs. WBC is still elevated. Prognosis guarded because of multiple complex medical issues, which I discussed at length with the family at the bedside and the family understands. Further recommendations to follow. KRISTIED
[2016-10-11 11:57] LABS: Glucose,Whole Blood 211 mg/dL (75-99)
[2016-10-11] MEDS ORDERED: INSULIN LISPRO (humaLOG) 300 UNIT/3 ML VIAL SQ ONE (14:40)
--- NOTE | 2016-10-11 15:01 | P.PN ---
Subjective Principal diagnosis: bi basilar pneumonia This is a 66-year-old white male with history of multiple medical problems including COPD, diabetes, hypertension, chronic renal disease, patient presented with several days history of cough, fever, weakness, and not feeling well. Patient described her cough as productive with yellow phlegm, no hemoptysis, no chest pain. Patient was hoping that his symptoms will resolve on their own because he felt they were like flulike symptoms. But his symptoms seemed to progress and get worse. Hence he presented to the ER with mostly worsening shortness of breath and cough as well as fever and chills. Chest x- ray showed coarse interstitial markings and pleural thickening mostly at the left base. However CT of the chest which I ordered upon my evaluation showed severe bilateral pneumonia with air bronchograms in both lower lobes. And in the paraspinal region. Most of the findings in the right lower lobe were noted to be in the superior segment. Patient was placed on broad-spectrum antibiotics for community-acquired pneumonia and is presently on Rocephin and Zithromax. Over the last 24 hours, the patient has made a slight improvement. Reevaluated today again, patient is feeling a bit better, breathing a bit easier. He had a T-max of 99.3. Hemodynamically stable continues to have leukocytosis with WBC of 16.1, renal profile showed a BUN of 57 creatinine of 2.0. Otherwise labs are relatively unremarkable. Clinically the patient is showing some improvement. Reevaluated today on 10/11/2016, patient is feeling better, breathing a bit easier. Continues to have cough and continues to have crackles at the bases bilaterally. His fever seems to have resolved, his temp today is 97.7. His WBC count is down to 12.2. And the rest of the labs were unremarkable. Creatinine seems to be improving it is down to 1.80 from 2.0 on admission. Objective - Vital Signs Vital signs: Vital Signs Temp 97.7 F 10/11/16 13:06 Pulse 71 10/11/16 13:06 Resp 18 10/11/16 13:06 BP 154/77 10/11/16 13:06 Pulse Ox 99 10/11/16 13:06 Intake & Output 10/10/16 10/11/16 10/11/16 18:59 06:59 18:59 Output Total 600 2450 Balance -600 -2450 Weight 119 kg Output: Urine 600 2450 Other: Voiding Method Toilet Toilet Urinal Urinal # Voids 1 1 - Exam Physical Exam: Revealed a 66-year-old white male slightly anxious but in no distress. HEENT:[Neck is supple.] [No neck masses.] [No thyromegaly.] [No JVD.] Chest: [Crackles and rhonchi noted at the bases bilaterally Cardiac Exam: [Normal S1 and S2, no S3 gallop, no murmur.] Abdomen: [Soft, nontender, no megaly, no rebound, no guarding, normal bowel sounds.] Extremities: [No clubbing, no edema, no cyanosis.] Neurological Exam: [No focal neurologic deficit.] - Labs CBC & Chem 7: 10/11/16 06:04 10/11/16 06:04 Labs: Abnormal Lab Results - Last 24 Hours (Table) 10/10/16 10/10/16 10/11/16 Range/Units 16:44 20:25 05:58 WBC (3.8-10.6) k/uL RBC (4.30-5.90) m/uL Hgb (13.0-17.5) gm/dL Hct (39.0-53.0) % Neutrophils # (1.3-7.7) k/uL BUN (9-20) mg/dL Creatinine (0.66-1.25) mg/dL Glucose (74-99) mg/dL POC Glucose (mg/dL) 151 H 165 H 67 L (75-99) mg/dL 10/11/16 10/11/16 10/11/16 Range/Units 06:04 06:04 06:09 WBC 12.2 H (3.8-10.6) k/uL RBC 4.13 L (4.30-5.90) m/uL Hgb 11.6 L (13.0-17.5) gm/dL Hct 35.7 L (39.0-53.0) % Neutrophils # 9.7 H (1.3-7.7) k/uL BUN 35 H (9-20) mg/dL Creatinine 1.80 H (0.66-1.25) mg/dL Glucose 66 L (74-99) mg/dL POC Glucose (mg/dL) 64 L (75-99) mg/dL 10/11/16 Range/Units 11:27 WBC (3.8-10.6) k/uL RBC (4.30-5.90) m/uL Hgb (13.0-17.5) gm/dL Hct (39.0-53.0) % Neutrophils # (1.3-7.7) k/uL BUN (9-20) mg/dL Creatinine (0.66-1.25) mg/dL Glucose (74-99) mg/dL POC Glucose (mg/dL) 211 H (75-99) mg/dL Assessment and Plan Plan: Impression: 1 acute bibasilar pneumonia, community-acquired, possibly gram-negative considering the patient's history of COPD. 2 multiple comorbidities including COPD, acute on chronic renal failure, diabetes type 2, hypertension, degenerative joint disease, and remote history of smoking. Recommendation: Continue present treatment plan including updrafts in the form of albuterol and Atrovent, Pulmicort, Perforomist, continue Rocephin and Zithromax, consider adding Solu-Medrol if the patient develops any worsening wheezing. We'll continue to follow, and repeat chest x-ray in the next couple of days. Time with Patient: Less than 30
[2016-10-11 17:19] LABS: Glucose,Whole Blood 120 mg/dL (75-99)
[2016-10-11] MEDS: MONTELUKAST 10 MG TAB PO SCH (20:30)
[2016-10-11] MEDS: ATORVASTATIN 20 MG TAB PO SCH (20:30)
[2016-10-11] MEDS: ALPRAZolam 0.5 MG TAB PO PRN (20:31)
[2016-10-11] MEDS: TAMSULOSIN 0.4 MG CAP.ER.24H PO SCH (20:31)
[2016-10-11] MEDS: cefTRIAXone 2,000 MG in SODIUM CHLORIDE 0.9% 100 ML IVPB SCH (21:29)
[2016-10-11] MEDS: INSULIN GLARGINE 100 UNIT/ML 10 ML VIAL SQ SCH (21:29)
[2016-10-11 21:36] LABS: Glucose,Whole Blood 205 mg/dL (75-99)
[2016-10-11 21:54] LABS: Calcium 8.7 mg/dL (8.4-10.2); Potassium 4.5 mmol/L (3.5-5.1); Total Bilirubin 0.7 mg/dL (0.2-1.3)
[2016-10-12 07:22] LABS: Glucose,Whole Blood 128 mg/dL (75-99)
[2016-10-12 07:29] VITALS: BP 143/72; TEMP 97.6
[2016-10-12] MEDS: LEVALBUTEROL NEB 1.25 MG/3 ML AMP INHALATION SCH (07:55)
[2016-10-12] MEDS: BUDESONIDE 1 MG/2 ML NEBU INHALATION SCH (07:55)
[2016-10-12] MEDS: IPRATROPIUM 0.5 MG/2.5 ML NEBU INHALATION SCH (07:55)
[2016-10-12] MEDS: FORMOTEROL FUMARATE 20 MCG/2 ML NEBU INHALATION SCH (07:55)
[2016-10-12 08:17] VITALS: PULSE 70
--- NOTE | 2016-10-12 08:26 | XR ---
EXAMINATION TYPE: XR chest 2V DATE OF EXAM: 10/12/2016 6:18 AM COMPARISON: Prior chest x-ray 09 October 2016 HISTORY: Pneumonia TECHNIQUE: Frontal and lateral views of the chest are obtained. FINDINGS: Some minimal blunting of the costophrenic angles is noted. There are overlying cardiac onel ds. No pneumothorax. Patchy basilar density is present. Prominent lung volume may be indicative of un derlying COPD. Postop change noted to the lumbar spine and right humerus. IMPRESSION: Findings compatible with patient's history of pneumonia bilateral lung bases. Additional follow-up recommended.
[2016-10-12] MEDS: INSULIN LISPRO (humaLOG) 300 UNIT/3 ML VIAL SQ SCH ×2 (08:34→14:39)
[2016-10-12] MEDS: DULoxetine HCL 60 MG CAPSULE.DR PO SCH (08:37)
[2016-10-12] MEDS: LOSARTAN 25 MG TAB PO SCH (08:37)
[2016-10-12] MEDS: CHOLECALCIFEROL 1,000 UNIT TAB PO SCH (08:37)
[2016-10-12] MEDS: ATENOLOL 50 MG TAB PO SCH (08:37)
[2016-10-12] MEDS: amLODIPine 5 MG TAB PO SCH (08:37)
[2016-10-12] MEDS: ZINC GLUCONATE 50 MG TAB PO SCH (08:37)
[2016-10-12] MEDS: PANTOPRAZOLE 40 MG TABLET PO SCH (08:37)
[2016-10-12] MEDS: MULTIVITAMINS, THERA 1 EACH TAB PO SCH (08:37)
[2016-10-12] MEDS: ALPRAZolam 0.5 MG TAB PO PRN (08:44)
[2016-10-12] MEDS ORDERED: HEPARIN SODIUM,PORCINE 5,000 UNIT/ML 1 ML VIAL SQ SCH (09:00)
[2016-10-12] MEDS ORDERED: AZITHROMYCIN 500 MG TAB PO SCH (09:00)
[2016-10-12] MEDS ORDERED: CALCITRIOL 0.25 MCG CAP PO SCH (09:00)
[2016-10-12 09:56] LABS: Calcium 8.9 mg/dL (8.4-10.2); Potassium 4.3 mmol/L (3.5-5.1)
--- NOTE | 2016-10-12 10:05 | PN ---
DATE OF SERVICE: 10/11/2016 I am covering for Dr. Ishmael Simons. This 66-year-old gentleman was admitted with shortness of breath, possibly pneumonia, bilateral. Patient is feeling slightly better. No chest pain, no palpitation, no fever. On exam, alert and oriented x3. Pulse 70, blood pressure is 130/68, respirations 20, temperature 97.7, pulse ox 97% on room air. HEENT: Conjunctivae normal. NECK: No jugular venous distension. RESPIRATORY: Breath sounds diminished at the bases, a few scattered rhonchi, no crackles. Abdomen is soft, nontender. EXTREMITIES: Legs no edema, no swelling. NERVOUS SYSTEM: No focal deficits. LABS: Accu-Cheks 120, WBC is 12.2, hemoglobin is 11.6. ASSESSMENT: 1. Acute bilateral pneumonia, right more than left, with possibly gram-negative with possible sepsis present on admission. 2. Increased WBC secondary to sepsis. 3. Anemia, normocytic. 4. Increased d-dimer with no evidence of pulmonary embolism. 5. Increased creatinine with possible acute renal failure, possibly prerenal. 6. Acute tubular necrosis. 7. Increased bilirubin. 8. Increased creatinine kinase. 9. Obesity, body mass index of 36.5. 10. History of chronic obstructive pulmonary disease. 11. Diabetes mellitus type 2. 12. Hypertension. 13. History of chronic renal disease. 14. History of degenerative joint disease. 15. History of cataract surgery. 16. Remote history of nicotine dependence. 17. FULL CODE. RECOMMENDATION AND DISCUSSION: Recommend to continue current medications, continue with the symptomatic treatment. Otherwise, continue with antibiotics. Closely follow with Dr. Sutherland, Dr. Simons will follow.
[2016-10-12 10:24] LABS: CHCM 32.5; HDW 2.84; HGB 12.6 gm/dL (13.0-17.5); Immature Gran Flag Slight; MCH 28.1 pg (25.0-35.0); MCHC 32.4 g/dL (31.0-37.0); MCV 86.8 fL (80.0-100.0); Mean Platelet Volume 8.3; RBC 4.49 m/uL (4.30-5.90); RDW 13.7 % (11.5-15.5); WBC 11.2 k/uL (3.8-10.6)
[2016-10-12 11:07] VITALS: RESP 18
[2016-10-12 11:43] VITALS: BMI 35.6
[2016-10-12] MEDS: B COMPLEX-VIT C-VIT E-ZINC 1 EACH TAB PO SCH (11:53)
[2016-10-12] MEDS: ASCORBIC ACID 500 MG TAB PO SCH (11:54)
[2016-10-12 12:37] LABS: Glucose,Whole Blood 254 mg/dL (75-99)
[2016-10-12] MEDS: IPRATROPIUM-ALBUTEROL 3 ML NEB IH SCH ×2 (12:55→15:41)
[2016-10-12 13:03] LABS: Add Differential Manual Differential
[2016-10-12 13:06] LABS: Metamyelocytes % 0.5 %; Nucleated Red Blood Cells 0 /100 WBC (0-0); Total Cells Counted 200
--- NOTE | 2016-10-13 17:22 | DS ---
DATE OF ADMISSION: 10/08/2016 DATE OF DISCHARGE: 10/12/2016 FINAL DIAGNOSES: 1. Acute bilateral pneumonia, right more than the left, possibly gram-negative with possible sepsis present on admission. 2. Increased WBC secondary to sepsis. 3. Anemia, normocytic. 4. Increased d-dimer with no evidence of pulmonary embolus. 5. Increased creatinine with possible acute renal failure, possible prerenal acute tubular necrosis. 6. Increased bilirubin. 7. Increased creatine kinase. 8. Obesity with body mass index of 36.5. 9. History of chronic obstructive pulmonary disease. 10. Diabetes mellitus type 2. 11. Hypertension. 12. History of chronic renal disease. 13. History of degenerative joint disease. 14. History of cataract surgery. 15. Remote history of nicotine dependence. 16. FULL CODE. DISCHARGE DISPOSITION: The patient was discharged in stable condition with guarded prognosis. HISTORY OF PRESENT ILLNESS: This 66-year-old gentleman with a past medical history of multiple medical problems being followed by Dr. Ishmael Simons in the outpatient setting, admitted with pneumonia. The patient treated with antibiotics. The patient improved significantly. Dr. Dwyer and Dr. Sutherland saw the patient. The patient cleared for discharge. On exam, vitals are stable. CARDIOVASCULAR SYSTEM: S1, S2 muffled. RESPIRATORY: A few scattered rhonchi and crackles. ABDOMEN: Soft. NERVOUS SYSTEM: No focal deficits. DISCHARGE ADVICE: 1. Diet is cardiac. 2. Activity limited until follow-up. 3. Follow up with Dr. Ishmael Simons in 2 to 3 days. 4. Follow up with Dr. Sutherland as advised. MEDICATIONS: 1. Xanax 0.5 b.i.d. p.r.n. 2. Vitamin C 500 mg p.o. daily. 3. Tenormin 50 mg p.o. b.i.d. 4. Zithromax 500 mg p.o. daily for 10 days. 5. Symbicort 160/4.5, 2 puffs b.i.d. 6. Rocaltrol 0.5 mg Tuesday, Tuesday. 7. Ceftin 500 mg p.o. b.i.d. for 10 days. 8. Multivitamin 1 p.o. daily. 9. Vitamin D3, 5000 daily. 10. Cymbalta 60 mg p.o. b.i.d. 11. Glucosamine chondroitin 1 p.o. b.i.d. 12. Lantus 50 units subcu q.h.s. 13. Apidra as before. 14. Albuterol, Atrovent updrafts q.i.d. and p.r.n. 15. Cozaar 25 mg p.o. daily. 16. Melatonin 3 mg q.h.s. p.r.n. 17. Singulair 10 mg p.o. q.h.s. 18. Multivitamins 1 p.o. daily. 19. Spruce-3 fatty acid 1 p.o. daily. 20. Prilosec 20 mg p.o. b.i.d. 21. Zocor 40 mg q.h.s. 22. Flomax 0.4 q.h.s. 23. Tumeric 500 mg p.o. daily. 24. Vitamin B complex 1 p.o. daily. 25. Zinc 150 mg p.o. daily. 26. Norvasc 5 mg p.o. daily. Once again, the patient will be discharged in a stable condition with guarded prognosis.
== END 2016-10-12 16:50 | disposition home or self-care (01) | DRG 871 ==
LOC: EC 14:22 → 6SEL 19:03 → 4MS4W 10-11 12:02 → UNDODISIN 10-12 14:09
PROVIDERS: ADMIT Hospitalist; ATTEND Hospitalist
DX: A41.9 Sepsis, unspecified organism (principal); J15.6 Pneumonia due to other Gram-negative bacteria; N17.0 Acute kidney failure with tubular necrosis; J44.0 Chronic obstructive pulmonary disease with (acute) lower respiratory infection; E11.22 Type 2 diabetes mellitus with diabetic chronic kidney disease; D64.9 Anemia, unspecified; E66.9 Obesity, unspecified; I12.9 Hypertensive chronic kidney disease with stage 1 through stage 4 chronic kidney disease, or unspecified chronic kidney disease; M19.90 Unspecified osteoarthritis, unspecified site; N18.9 Chronic kidney disease, unspecified; Z87.891 Personal history of nicotine dependence; Z68.36 Body mass index [BMI] 36.0-36.9, adult; Z79.4 Long term (current) use of insulin; Z79.899 Other long term (current) drug therapy
CPT/HCPCS: 36415; 71020; 71250; 78582; 80048; 80053; 82550; 82553; 83036; 83605; 84484; 85025; 85379; 87040; 87502; 93005; 94640; 94760; 96361; 96374; 99285

== ENCOUNTER → 2018-05-09 | Outpatient (CLI) | payer MEDICARE, BC ==
--- NOTE | 2018-05-09 08:08 | US ---
EXAMINATION TYPE: US duplex aorta DATE OF EXAM: 05/09/2018 COMPARISON: NONE CLINICAL HISTORY: 68-year-old male Z13.9 Encounter for screening unspecified. TECHNIQUE: Multiple sonographic images of the abdominal aorta are obtained. FINDINGS: EXAM MEASUREMENTS: Abdominal Aorta: Proximal: 2.0 x 2.2 cm Mid: 1.9 x 1.7 cm Distal: 1.8 x 1.7 cm Bifurcation: JANIYA: 1.3 x 1.1 cm NIEVES: 1.5 x 1.2 cm IMPRESSION: The left common iliac artery is borderline ectatic at 1.5 cm. No evidence for AAA.
== END | disposition home or self-care (01) ==
LOC: RADUSWWP 06:56
PROVIDERS: ATTEND Family Medicine
DX: I72.3 Aneurysm of iliac artery (principal)
CPT/HCPCS: 93979

== ENCOUNTER 2018-05-26 07:07 | Day surgery (SDC) | payer BC, MEDICARE ==
[2018-05-24 12:26] VITALS: BMI 37.3
[~2018-05-26 07:07] MED LIST: LACTATED RINGERS 1,000 ML IV SCH; LIDOCAINE 1% 20 ML VIAL (10MG/ML) FOR IV START INTRADERMA PRN
[2018-05-26 07:28] VITALS: TEMP 98.3
[2018-05-26] MEDS ORDERED: PROPOFOL 10 MG/ML 20 ML VIAL IV ONE (08:10)
[2018-05-26] MEDS ORDERED: LIDOCAINE 1% INJ 10MG/ML (20 ML MDV) ONE (08:10)
[2018-05-26 08:17] LABS: Glucose,Whole Blood 82 mg/dL (75-99)
[2018-05-26 08:26] VITALS: RESP 16
--- NOTE | 2018-05-26 08:27 | P.PCN ---
Date of Procedure: 05/26/18 Procedure(s) Performed: BRIEF HISTORY: Patient is a 68-year-old pleasant male, scheduled for an elective colonoscopy as a part of screening for colonic neoplasia. PROCEDURE PERFORMED: Colonoscopy with biopsy . PREOPERATIVE DIAGNOSIS: Screening for colon cancer IV sedation per Anesthesia. PROCEDURE: After informed consent was obtained, the patient, was brought into the endoscopy unit. IV sedation was administered by Anesthesia under continuous monitoring. Digital rectal examination was normal. Initially the Olympus CF- 160 flexible video colonoscope was then inserted in the rectum, gradually advanced into the cecum without any difficulty. Careful examination was performed as the scope was gradually being withdrawn. Ileocecal valve and the appendiceal orifice were visualized and appeared normal. Prep was excellent. Mucosa of the cecum, ascending colon, transverse colon, appeared normal. In the descending colon there was a 2-3 mm sessile polyp that was removed by cold biopsy. Rest of the descending colon, sigmoid colon, and rectum appeared normal. Scattered sigmoid diverticulosis seen. Retroflexion was performed in the rectum and no lesions were seen. The patient tolerated the procedure well. IMPRESSION: 2-3 mm sessile descending colon polyp status post removal by cold biopsy Scattered sigmoid diverticulosis . RECOMMENDATIONS: Findings of this examination were discussed with the patient as well as her family. He was advised to follow with the biopsy results. He' ll have a repeat surveillance colonoscopy in 5 years..
[2018-05-26 08:31] LABS: Glucose,Whole Blood 82 mg/dL (75-99)
[2018-05-26 08:38] VITALS: BP 160/81; PULSE 60
== END 2018-05-26 09:14 | disposition home or self-care (01) ==
LOC: ORWHC2ENDO 07:07
PROVIDERS: ATTEND Internal Medicine Gastroenterology
DX: Z12.11 Encounter for screening for malignant neoplasm of colon (principal); K63.5 Polyp of colon; K57.30 Diverticulosis of large intestine without perforation or abscess without bleeding; I10 Essential (primary) hypertension; J44.9 Chronic obstructive pulmonary disease, unspecified; Z87.891 Personal history of nicotine dependence; E11.21 Type 2 diabetes mellitus with diabetic nephropathy; Z79.4 Long term (current) use of insulin; Z79.82 Long term (current) use of aspirin; Z79.899 Other long term (current) drug therapy
CPT/HCPCS: 88305; 45380; J2001; J2704

== ENCOUNTER → 2020-04-30 | Outpatient (CLI) | payer MEDICARE ==
--- NOTE | 2020-04-30 13:13 | CT ---
EXAMINATION TYPE: CT brain wo con DATE OF EXAM: 04/30/2020 COMPARISON: 05/04/2013 HISTORY: Unsteady gait, falls CT DLP: 1086.5 mGycm Automated exposure control for dose reduction was used. FINDINGS: There is mild to moderate generalized degenerative change. Area of low attenuation in the left basal ganglia most likely in the basis of remote lacunar infarct. Faint attenuation in the white matter jones aterally is nonspecific but most typical remote microvascular ischemia. Craniocervical junction is maintained. Sella turcica has a normal appearance. Calvarium intact. Mattson es of chronic sinusitis noted. IMPRESSION: 1. Mild degenerative change with nonspecific white matter changes most typical of remote ischemia. 2. Chronic sinusitis
== END | disposition home or self-care (01) ==
LOC: RADCTMAIN 12:42
PROVIDERS: ATTEND Nurse Practitioner Family
DX: J32.9 Chronic sinusitis, unspecified (principal); I67.82 Cerebral ischemia; R27.9 Unspecified lack of coordination
CPT/HCPCS: 70450

== ENCOUNTER → 2020-09-22 | Outpatient (CLI) | payer MEDICARE | END | disposition home or self-care (01) | LOC: LABWHC1 14:26 | PROVIDERS: ATTEND Nurse Practitioner | DX: Z20.828 Contact with and (suspected) exposure to other viral communicable diseases (principal) | CPT/HCPCS: U0003; C9803 ==

== ENCOUNTER → 2021-02-09 | Outpatient (CLI) | payer MEDICARE ==
--- NOTE | 2021-02-09 15:18 | XR ---
EXAMINATION TYPE: XR chest 2V DATE OF EXAM: 02/09/2021 COMPARISON: 10/12/2016 TECHNIQUE: PA and lateral views submitted. HISTORY: Presurgical testing FINDINGS: The lungs are clear and there is no pneumothorax, pleural effusion, or focal pneumonia. There is bi lateral pleural-based thickening. No overt failure or pneumothorax. Postoperative change involving th e right shoulder. Hypertrophic and degenerative change of the spine. IMPRESSION: 1. No acute process.
== END | disposition home or self-care (01) ==
LOC: RADXRMAIN 14:57
PROVIDERS: ATTEND Nurse Practitioner
DX: Z01.818 Encounter for other preprocedural examination (principal)
CPT/HCPCS: 71046

== ENCOUNTER → 2021-04-29 | Outpatient (CLI) | payer MEDICARE ==
[2021-04-29 16:41] LABS: Appearance,Urine Clear (Clear); Bilirubin,Urine Negative (Negative); Blood,Urine Negative (Negative); Color,Urine Yellow; Glucose,Urine (UA) Negative (Negative); Ketones,Urine Negative (Negative); Leukocyte Esterase,Urine Negative (Negative); Mucus,Urine Rare /hpf; Nitrite,Urine Negative (Negative); Protein,Urine 2+ (Negative); RBC,Urine 1 /hpf (0-5); Specific Gravity,Urine 1.017 (1.001-1.035); Squamous Epithelial Cell,Urine <1 /hpf (0-4); Urobilinogen,Urine <2.0 mg/dL (<2.0); WBC,Urine 1 /hpf (0-5)
[2021-04-29 23:46] LABS: HCT 45.6 % (39.6-50.0); HGB 14.6 g/dL (13.0-17.0); MCH 28.2 pg (27.0-32.0); Mean Platelet Volume 12.3 fL (9.5-12.2); Platelet Count 207 X 10*3/uL (140-440); RBC 5.18 X 10*6/uL (4.40-5.60); RDW 15.2 % (11.5-14.5)
[2021-04-30 17:53] LABS: % Iron Saturation 35.96 (15.00-50.00); African American GFR (CKD) 35.6 (60.0-200.0); Albumin 4.1 g/dL (3.80-4.90); Albumin/Globulin Ratio 1.41 (1.60-3.17); Anion Gap 17.2 mmol/L (4.00-12.00); BUN/Creat Ratio 17.14 Ratio (12.00-20.00); Calcium 9.4 mg/dL (8.7-10.3); Carbon Dioxide 22.8 mmol/L (21.6-31.8); Globulin 2.9 g/dL (1.6-3.3); Magnesium 1.7 mg/dL (1.5-2.4); Non-African American GFR(CKD) 30.7 (60.0-200.0); Phosphorus 4.3 mg/dL (2.4-5.1); Potassium 5.2 mmol/L (3.5-5.5); Total Bilirubin 0.6 mg/dL (0.3-1.2); Uric Acid 5.8 mg/dL (3.7-8.7)
[2021-04-30 18:01] LABS: Ferritin 125.6 ng/mL (22.0-322.0)
[2021-05-01 00:43] LABS: Urine Creatinine 130.3 mg/dL
== END | disposition home or self-care (01) ==
LOC: LABWHC1 16:05
PROVIDERS: ATTEND Nurse Practitioner Family
DX: N39.0 Urinary tract infection, site not specified (principal); N18.32 Chronic kidney disease, stage 3b; N25.81 Secondary hyperparathyroidism of renal origin; E55.9 Vitamin D deficiency, unspecified; D64.9 Anemia, unspecified; M10.9 Gout, unspecified
CPT/HCPCS: 36415; 80053; 81001; 82043; 82306; 82570; 82728; 83540; 83550; 83735; 83970; 84100; 84550; 85027

== ENCOUNTER → 2021-08-19 | Outpatient (CLI) | payer MEDICARE ==
[2021-08-19 14:49] LABS: Appearance,Urine Clear (Clear); Bilirubin,Urine Negative (Negative); Blood,Urine Negative (Negative); Color,Urine Yellow; Glucose,Urine (UA) Negative (Negative); Ketones,Urine Negative (Negative); Leukocyte Esterase,Urine Negative (Negative); Mucus,Urine Rare /hpf; Nitrite,Urine Negative (Negative); PH, Urine 5.5 (5.0-8.0); Protein,Urine 2+ (Negative); RBC,Urine <1 /hpf (0-5); Specific Gravity,Urine 1.015 (1.001-1.035); Urobilinogen,Urine <2.0 mg/dL (<2.0); WBC,Urine 1 /hpf (0-5)
[2021-08-19 15:04] LABS: Creatinine,Urine Random 122.8 mg/dL
[2021-08-19 15:19] LABS: Protein/Creatinine Ratio,Urine 2.622
[2021-08-19 20:08] LABS: HCT 39.3 % (39.6-50.0); HGB 12.6 g/dL (13.0-17.0); MCH 28.4 pg (27.0-32.0); MCHC 32.1 g/dL (32.0-37.0); MCV 88.5 fL (80.0-97.0); Mean Platelet Volume 12.2 fL (9.5-12.2); Platelet Count 203 X 10*3/uL (140-440); RBC 4.44 X 10*6/uL (4.40-5.60); RDW 13.4 % (11.5-14.5); WBC 9.47 X 10*3/uL (4.50-10.00)
[2021-08-19 20:26] LABS: % Iron Saturation 27.4 (15.00-50.00); African American GFR (CKD) 40.2 (60.0-200.0); Albumin/Globulin Ratio 1.54 (1.60-3.17); Anion Gap 12.4 mmol/L (4.00-12.00); BUN/Creat Ratio 16.21 Ratio (12.00-20.00); Blood Urea Nitrogen 30.8 mg/dL (9.0-27.0); Calcium 9.2 mg/dL (8.7-10.3); Carbon Dioxide 22.6 mmol/L (21.6-31.8); Globulin 2.6 g/dL (1.6-3.3); Non-African American GFR(CKD) 34.7 (60.0-200.0); Potassium 4.4 mmol/L (3.5-5.5); Total Bilirubin 0.3 mg/dL (0.30-1.20); Total Protein 6.6 g/dL (6.2-8.2); Uric Acid 5.6 mg/dL (3.7-8.7)
[2021-08-20 01:30] LABS: Protein, Total 6.5 g/dL (6.2-8.2)
[2021-08-20 04:49] LABS: Anti-DNA, DS unit <1.0 IU/mL; DNA Double-Stranded NEGATIVE (NEGATIVE)
[2021-08-20 14:13] LABS: C-ANCA <1:20 Titer (<1:20)
[2021-08-20 14:23] LABS: Albumin 3.76 g/dL (3.80-4.90); Gamma Globulin 1.14 g/dL (0.70-1.50)
[2021-08-21 11:00] LABS: Free Kappa Lt Chain Qnt, Serum 2.94 mg/dL (0.33-1.94)
== END | disposition home or self-care (01) ==
LOC: LABWHC1 14:11
PROVIDERS: ATTEND Nurse Practitioner Family
DX: N18.32 Chronic kidney disease, stage 3b (principal); D64.9 Anemia, unspecified; N39.0 Urinary tract infection, site not specified; M10.9 Gout, unspecified; N25.81 Secondary hyperparathyroidism of renal origin; E55.9 Vitamin D deficiency, unspecified; R80.9 Proteinuria, unspecified
CPT/HCPCS: 36415; 80053; 81001; 82043; 82306; 82570; 82728; 83516; 83540; 83550; 83735; 83883; 83970; 84100; 84156; 84165; 84550; 85027; 86038; 86160; 86162; 86225; 86255; 86334

== ENCOUNTER 2021-09-08 12:55 | Emergency (ER) | payer MEDICARE ==
[2021-09-08 15:31] VITALS: BP 148/73; PULSE 72; RESP 20; TEMP 98
--- NOTE | 2021-09-08 21:17 | XR ---
EXAMINATION TYPE: XR chest 2V DATE OF EXAM: 09/08/2021 COMPARISON: Chest radiograph 02/09/2021 HISTORY: Cough/pain TECHNIQUE: Frontal and lateral views of the chest are obtained. FINDINGS: There is no focal air space opacity, pleural effusion, or pneumothorax seen. The cardiac silhouette size is within normal limits. The osseous structures are intact. IMPRESSION: No acute cardiopulmonary process.
[2021-09-08] MEDS ORDERED: dexAMETHasone 2 MG TAB PO STA (22:36)
--- NOTE | 2021-09-08 22:59 | ED ---
General Adult HPI - General Chief complaint: Upper Respiratory Infection Stated complaint: Covid symptoms, cough Time Seen by Provider: 09/08/21 19:01 Source: patient Mode of arrival: wheelchair Limitations: no limitations - History of Present Illness Initial comments: 71-year-old male presents emergency room with reported cough present for the past 3 days which is worse at night. Patient states he has had similar issues in the past. States that around this time of year the patient develops almost a croup-like cough. He is unable to lay flat at night because he begins coughing. at bedside describes it as a seal-like cough. He denies any fevers. No shortness of breath. Denies any chest pain. She also reports to right ear pain and states that he has chronic ear infections. Denies any exposure to Covid. Denies productive cough. He has been taking Delsym and Mucinex at home for his symptoms without improvement. Patient denies history of pulmonary issues however his chart states that he does have COPD. No other alleviating, precipitating or modifying factors - Related Data Home Medications Medication Instructions Recorded Confirmed ALPRAZolam [Xanax] 0.5 mg PO HS PRN 10/08/16 09/08/21 DULoxetine HCL [Cymbalta] 120 mg PO DAILY 10/08/16 09/08/21 Losartan [Cozaar] 25 mg PO DAILY 10/08/16 09/08/21 Omeprazole [PriLOSEC] 20 mg PO DAILY 10/08/16 09/08/21 Tamsulosin HCl [Flomax] 0.4 mg PO DAILY 10/08/16 09/08/21 amLODIPine [Norvasc] 5 mg PO DAILY 10/08/16 09/08/21 atenoloL [Tenormin] 50 mg PO BID 10/08/16 09/08/21 Chlorpheniramine Maleate 4 mg PO DAILY PRN 05/24/18 09/08/21 Insulin Lispro [humaLOG Kwikpen] See Protocol SQ ACHS 05/24/18 09/08/21 Atorvastatin Calcium [Lipitor] 40 mg PO HS 09/08/21 09/08/21 Cetirizine HCl 10 mg PO DAILY PRN 09/08/21 09/08/21 HYDROcodone/APAP 10-325MG [[place] 2 tab PO DAILY 09/08/21 09/08/21 10-325] Insulin Glargine,Hum.rec.anlog 50 unit SQ HS 09/08/21 09/08/21 [Lantus Solostar Pen] Tadalafil [Cialis] 10 mg PO DAILY PRN 09/08/21 09/08/21 calcitrioL [Rocaltrol] 0.25 mcg PO MO 09/08/21 09/08/21 Previous Rx's Medication Instructions Recorded Amoxicillin 875 mg PO Q12HR #20 tablet 09/08/21 Benzonatate [Tessalon Perles] 100 mg PO TID PRN #18 capsule 09/08/21 Codeine Phosphate/Guaifenesin 5 ml PO Q6H PRN 3 Days #60 ml 09/08/21 [Guaifen-Codeine 100-10 mg/5 ml] Allergies Allergy/AdvReac Type Severity Reaction Status Date / Time No Known Allergies Allergy Verified 09/08/21 20:10 Review of Systems ROS Statement: Those systems with pertinent positive or pertinent negative responses have been documented in the HPI. ROS Other: All systems not noted in ROS Statement are negative. Past Medical History Past Medical History: COPD, Diabetes Mellitus, Hypertension, Renal Disease History of Any Multi-Drug Resistant Organisms: None Reported Past Surgical History: Back Surgery, Orthopedic Surgery Additional Past Surgical History / Comment(s): FX Right leg & right arm repair; Cataract surg; Colonoscopy Past Anesthesia/Blood Transfusion Reactions: No Reported Reaction Past Psychological History: No Psychological Hx Reported Smoking Status: Former smoker Past Alcohol Use History: None Reported Past Drug Use History: None Reported - Past Family History Father Family Medical History: Cancer General Exam Limitations: no limitations Course Vital Signs 09/08/21 15:28 Temperature 98.0 F Pulse Rate 72 Respiratory 20 Rate Blood Pressure 148/73 O2 Sat by Pulse 98 Oximetry Medical Decision Making - Medical Decision Making Upon arrival patient is placed into room 22. A thorough history and physical exam is performed. He is swabbed for Covid which is negative. Chest x-ray is performed which demonstrates no acute process. Patient will be placed on antibiotics for his right ear infection. Also recommended that the patient be given a dose of Decadron for suspected laryngotracheal bronchitis. Prescriptions for codeine cough syrup and Tessalon Perles sent to the pharmacy. Patient is instructed to follow up with his primary care doctor in 2-4 days. Return for any new or worsening symptoms per patient was discharged in stable condition - Lab Data Lab Results 09/08/21 Range/Units 15:34 Coronavirus (PCR) Not Detected (Not Detectd) Disposition Clinical Impression: Cough, Otitis media Disposition: HOME SELF-CARE Condition: Stable Instructions (If sedation given, give patient instructions): Ear Infection (ED) Additional Instructions: Take antibiotics as directed. Follow up with the primary care doctor. Return to the emergency room for any new or worsening symptoms Prescriptions: Amoxicillin 875 mg PO Q12HR #20 tablet Codeine Phosphate/Guaifenesin [Guaifen-Codeine 100-10 mg/5 ml] 5 ml PO Q6H PRN 3 Days #60 ml PRN Reason: Cough Benzonatate [Tessalon Perles] 100 mg PO TID PRN #18 capsule PRN Reason: Cough Is patient prescribed a controlled substance at d/c from ED?: Yes When asked, does pt state using other controlled substances?: No If prescribed controlled substance>3 days was MAPS reviewed?: Prescribed <3 Days If opioid is for acute pain is fill amount 7 days or less?: Yes If Rx opioid, was Start Talking consent form obtained?: Yes Referrals: Ishmael Simons MD [Primary Care Provider] - 1-2 days Time of Disposition: 22:59
== END 2021-09-08 22:58 | disposition home or self-care (01) ==
LOC: EC 12:55
DX: R05.9 Cough, unspecified (principal); H66.90 Otitis media, unspecified, unspecified ear; J44.9 Chronic obstructive pulmonary disease, unspecified; E11.9 Type 2 diabetes mellitus without complications; I10 Essential (primary) hypertension; Z87.891 Personal history of nicotine dependence
CPT/HCPCS: 93005; 87635; 71046; 99284; J8540

== ENCOUNTER → 2021-11-17 | Outpatient (CLI) | payer MEDICARE ==
[2021-11-17 15:14] LABS: Appearance,Urine Clear (Clear); Bilirubin,Urine Negative (Negative); Blood,Urine Negative (Negative); Color,Urine Yellow; Glucose,Urine (UA) Negative (Negative); Ketones,Urine Negative (Negative); Leukocyte Esterase,Urine Negative (Negative); Mucus,Urine Rare /hpf; Nitrite,Urine Negative (Negative); PH, Urine 5.5 (5.0-8.0); Protein,Urine 2+ (Negative); RBC,Urine <1 /hpf (0-5); Specific Gravity,Urine 1.016 (1.001-1.035); Squamous Epithelial Cell,Urine <1 /hpf (0-4); Urobilinogen,Urine <2.0 mg/dL (<2.0); WBC,Urine 1 /hpf (0-5)
[2021-11-17 15:30] LABS: Protein/Creatinine Ratio,Urine 2.358
[2021-11-17 18:26] LABS: MCH 28.2 pg (27.0-32.0); MCHC 31.7 g/dL (32.0-37.0); MCV 88.9 fL (80.0-97.0); Mean Platelet Volume 11.7 fL (9.5-12.2); NRBC Per 100 WBC 0 /100 WBCS (0.0-0.0); Platelet Count 215 X 10*3/uL (140-440); RBC 4.61 X 10*6/uL (4.40-5.60); RDW 13.6 % (11.5-14.5)
[2021-11-17 18:52] LABS: % Iron Saturation 25.22 (15.00-50.00); African American GFR (CKD) 40.2 (60.0-200.0); Albumin/Globulin Ratio 1.25 (1.60-3.17); Anion Gap 13.6 mmol/L (10.00-18.00); BUN/Creat Ratio 16.95 Ratio (12.00-20.00); Blood Urea Nitrogen 32.2 mg/dL (9.0-27.0); Calcium 9.6 mg/dL (8.7-10.3); Carbon Dioxide 21.4 mmol/L (20.0-27.5); Globulin 3.2 g/dL (1.6-3.3); Non-African American GFR(CKD) 34.7 (60.0-200.0); Phosphorus 4.2 mg/dL (2.4-5.1); Potassium 4.8 mmol/L (3.5-5.5); Total Bilirubin 0.3 mg/dL (0.30-1.20); Total Protein 7.2 g/dL (6.2-8.2)
== END | disposition home or self-care (01) ==
LOC: LABWHC1 14:27
PROVIDERS: ATTEND Internal Medicine
DX: E55.9 Vitamin D deficiency, unspecified (principal); E21.3 Hyperparathyroidism, unspecified; D64.9 Anemia, unspecified; N39.0 Urinary tract infection, site not specified; M10.9 Gout, unspecified; R80.9 Proteinuria, unspecified
CPT/HCPCS: 36415; 80053; 81001; 82306; 82570; 82728; 83540; 83550; 83735; 83970; 84100; 84156; 84550; 85027

== ENCOUNTER → 2022-03-05 | Outpatient (CLI) | payer MEDICARE ==
[2022-03-05 16:39] LABS: Creatinine,Urine Random 68.4 mg/dL; Protein/Creatinine Ratio,Urine 1.784
[2022-03-05 22:24] LABS: Basophils # (A) 0.07 X 10*3/uL (0.00-0.10); Basophils % (A) 0.7 %; Eosinophils # (A) 0.38 X 10*3/uL (0.04-0.35); Eosinophils % (A) 3.8 %; HCT 44.5 % (39.6-50.0); HGB 13.4 g/dL (13.0-17.0); Immature Grans, Automated 0.6 %; Lymphocytes # (A) 1.66 X 10*3/uL (0.90-5.00); Lymphocytes % (A) 16.7 %; MCHC 30.1 g/dL (32.0-37.0); MCV 89.5 fL (80.0-97.0); Mean Platelet Volume 12.4 fL (9.5-12.2); Monocytes # (A) 0.78 X 10*3/uL (0.20-1.00); Monocytes % (A) 7.8 %; NRBC Per 100 WBC 0 /100 WBCS (0.0-0.0); Neutrophils # (A) 6.99 X 10*3/uL (1.80-7.70); Neutrophils % (A) 70.4 %; Platelet Count 206 X 10*3/uL (140-440); RBC 4.97 X 10*6/uL (4.40-5.60); RDW 14.8 % (11.5-14.5); WBC 9.94 X 10*3/uL (4.50-10.00)
[2022-03-05 22:45] LABS: % Iron Saturation 20.67 (15.00-50.00); Albumin/Globulin Ratio 1.19 (1.60-3.17); Anion Gap 9.4 mmol/L (10.00-18.00); BUN/Creat Ratio 12.22 Ratio (12.00-20.00); Blood Urea Nitrogen 24.2 mg/dL (9.0-27.0); Calcium 9.2 mg/dL (8.7-10.3); Carbon Dioxide 27.9 mmol/L (20.0-27.5); Globulin 3.3 g/dL (1.6-3.3); Non-African American GFR(CKD) 32.8 (60.0-200.0); Phosphorus 3.6 mg/dL (2.4-5.1); Potassium 4.8 mmol/L (3.5-5.5); Total Bilirubin 0.5 mg/dL (0.30-1.20); Total Protein 7.3 g/dL (6.2-8.2); Uric Acid 5.8 mg/dL (3.7-8.7)
[2022-03-05 23:27] LABS: Ferritin 84.5 ng/mL (22.0-322.0)
[2022-03-06 01:18] LABS: Appearance,Urine Clear (Clear); Bilirubin,Urine Negative (Negative); Blood,Urine Negative (Negative); Color,Urine Yellow (Yellow); Ketones,Urine Negative (Negative); Nitrite,Urine Negative (Negative); Specific Gravity,Urine 1.012 (1.001-1.030); Urobilinogen,Urine 0.2 (0.2,1.0)
[2022-03-06 01:31] LABS: Bacteria,Urine None Seen /HPF (None Seen)
== END | disposition home or self-care (01) ==
LOC: LABWHC1 15:41
PROVIDERS: ATTEND Nurse Practitioner Family
DX: E55.9 Vitamin D deficiency, unspecified (principal); E21.3 Hyperparathyroidism, unspecified; D64.9 Anemia, unspecified; M10.9 Gout, unspecified; N39.0 Urinary tract infection, site not specified; N18.32 Chronic kidney disease, stage 3b
CPT/HCPCS: 36415; 80053; 81001; 82306; 82570; 82728; 83540; 83550; 83735; 83970; 84100; 84156; 84550; 85025

== ENCOUNTER 2022-03-19 14:21 | Emergency (ER) | payer MEDICARE ==
[2022-03-19 14:32] VITALS: TEMP 97.8
[2022-03-19 15:43] LABS: Basophils # (A) 0.1 k/uL (0-0.2); Basophils % (A) 0 %; Eosinophils # (A) 0.4 k/uL (0-0.7); Eosinophils % (A) 4 %; HCT 42.9 % (39.0-53.0); HGB 13.7 gm/dL (13.0-17.5); Lymphocytes # (A) 1.6 k/uL (1.0-4.8); Lymphocytes % (A) 14 %; MCH 27.6 pg (25.0-35.0); MCHC 31.9 g/dL (31.0-37.0); MCV 86.5 fL (80.0-100.0); Mean Platelet Volume 9.2; Monocytes # (A) 0.6 k/uL (0-1.0); Monocytes % (A) 6 %; Neutrophils # (A) 8.3 k/uL (1.3-7.7); Neutrophils % (A) 75 %; Platelet Count 238 k/uL (150-450); RBC 4.96 m/uL (4.30-5.90); RDW 14.6 % (11.5-15.5); WBC 11.2 k/uL (3.8-10.6)
[2022-03-19 15:49] LABS: Calcium 8.8 mg/dL (8.4-10.2); Potassium 4.2 mmol/L (3.5-5.1); Total Bilirubin 0.5 mg/dL (0.2-1.3); Total Protein 7.2 g/dL (6.3-8.2)
[2022-03-19 16:10] VITALS: BP 130/62; PULSE 63; RESP 18
[2022-03-19 16:13] LABS: Glucose,Whole Blood 79 mg/dL (75-99)
--- NOTE | 2022-03-19 16:21 | ED ---
Neuro HPI - General Chief Complaint: Neuro Symptoms/Deficit Stated Complaint: Lt Sided Facial Droop Source: patient Mode of arrival: wheelchair Limitations: no limitations - History of Present Illness Is the patient presenting with stroke symptoms?: Yes Initial Comments: 72-year-old male past medical history of COPD, diabetes, hypertension presents to the emergency department for left-sided facial droop. Patient reports that he began having symptoms 2 days ago. He was noticing that he could not blink his left eye and he was having significant tearing. Admits to a burning sensation. Patient also has some slurred speech. Inability to smile with a left-sided assays. States that he was trying to drink water noted that it was spilling from the left side of his mouth. He denies previous history of stroke. No symptoms that involve the left arm and left leg. Does have chronic tremors and has been evaluated for Parkinson's however not diagnosed. He sees Dr. Condon. He denies any head trauma. No other alleviating, precipitating or modifying factors - Related Data Home Medications: Home Medications Medication Instructions Recorded Confirmed ALPRAZolam [Xanax] 0.5 mg PO HS PRN 10/08/16 03/19/22 DULoxetine HCL [Cymbalta] 120 mg PO DAILY 10/08/16 03/19/22 Losartan [Cozaar] 25 mg PO DAILY 10/08/16 03/19/22 Omeprazole [PriLOSEC] 20 mg PO DAILY 10/08/16 03/19/22 Tamsulosin HCl [Flomax] 0.4 mg PO DAILY 10/08/16 03/19/22 atenoloL [Tenormin] 50 mg PO BID 10/08/16 03/19/22 Chlorpheniramine Maleate 4 mg PO DAILY PRN 05/24/18 03/19/22 Insulin Lispro [humaLOG Kwikpen] See Protocol SQ ACHS 05/24/18 03/19/22 Atorvastatin Calcium [Lipitor] 40 mg PO HS 09/08/21 03/19/22 Cetirizine HCl 10 mg PO DAILY 09/08/21 03/19/22 HYDROcodone/APAP 10-325MG [[place] 1 tab PO QID PRN 09/08/21 03/19/22 10-325] Insulin Glargine,Hum.rec.anlog 50 unit SQ HS 09/08/21 03/19/22 [Lantus Solostar Pen] Tadalafil [Cialis] 10 mg PO DAILY PRN 09/08/21 03/19/22 calcitrioL [Rocaltrol] 0.25 mcg PO MO 09/08/21 03/19/22 Ammonium Lactate Cream [Lac-Hydrin 1 applic TOPICAL BID PRN 03/19/22 03/19/22 12% Cream] Ascorbic Acid [Vitamin C] 2,000 mg PO DAILY 03/19/22 03/19/22 Aspirin EC [Ecotrin Low Dose] 81 mg PO DAILY 03/19/22 03/19/22 Biotin 10,000 mcg PO DAILY 03/19/22 03/19/22 Cholecalciferol [Vitamin D3 (25 50 mcg PO DAILY 03/19/22 03/19/22 Mcg = 1000 Iu)] Cinnamon Bark [Cinnamon] 1,000 mg PO DAILY 03/19/22 03/19/22 Cold Pressed Black Seed Oil 1 cap PO DAILY 03/19/22 03/19/22 Elderberry Fruit and Flower [Black 1 cap PO DAILY 03/19/22 03/19/22 Elderberry 575 mg Cap] Flaxseed Oil 300mg 300 mg PO HS 03/19/22 03/19/22 L.acidoph,Paracasei, B.lactis 1 cap PO DAILY 03/19/22 03/19/22 [Probiotic] Lutein 40 mg PO DAILY 03/19/22 03/19/22 Magnesium 650mg 650 mg PO DAILY 03/19/22 03/19/22 Melatonin 5 mg PO HS 03/19/22 03/19/22 Multivit-Min/FA/Lycopen/Lutein 1 tab PO DAILY 03/19/22 03/19/22 [Centrum Silver Men Tablet] Super B Complex 1 cap PO DAILY 03/19/22 03/19/22 Testosterone Cypionate 200 mg IM Q14D 03/19/22 03/19/22 [Depo-Testosterone] Torsemide [Demadex] 10 mg PO DAILY 03/19/22 03/19/22 Triamcinolone 0.1% Cream [Kenalog 1 applic TOPICAL BID PRN 03/19/22 03/19/22 0.1% Cream] Zinc 50 mg PO DAILY 03/19/22 03/19/22 amLODIPine [Norvasc] 10 mg PO DAILY 03/19/22 03/19/22 Previous Rx's Medication Instructions Recorded Artificial Tears Ointment 1 gm OPHTHALMIC HS #3.5 gm 03/19/22 [Lubrifresh Pm Ointment] Carboxymethylcellulose Sodium 1 drop LEFT EYE Q1HR #15 ml 03/19/22 [Refresh Tears] predniSONE [Deltasone] 60 mg PO DAILY 7 Days #21 tab 03/19/22 valACYclovir HCL [Valtrex] 1,000 mg PO Q8HR #21 tab 03/19/22 Allergies/Adverse Reactions: Allergies Allergy/AdvReac Type Severity Reaction Status Date / Time No Known Allergies Allergy Verified 03/19/22 17:43 Review of Systems ROS Statement: Those systems with pertinent positive or pertinent negative responses have been documented in the HPI. ROS Other: All systems not noted in ROS Statement are negative. General Exam Limitations: no limitations Stroke MDM - Lab Data Result diagrams: 03/19/22 14:58 03/19/22 14:58 Lab Results 03/19/22 03/19/22 03/19/22 Range/Units 14:58 14:58 16:11 WBC 11.2 H (3.8-10.6) k/uL RBC 4.96 (4.30-5.90) m/uL Hgb 13.7 (13.0-17.5) gm/dL Hct 42.9 (39.0-53.0) % MCV 86.5 (80.0-100.0) fL MCH 27.6 (25.0-35.0) pg MCHC 31.9 (31.0-37.0) g/dL RDW 14.6 (11.5-15.5) % Plt Count 238 (150-450) k/uL MPV 9.2 Neutrophils % 75 % Lymphocytes % 14 % Monocytes % 6 % Eosinophils % 4 % Basophils % 0 % Neutrophils # 8.3 H (1.3-7.7) k/uL Lymphocytes # 1.6 (1.0-4.8) k/uL Monocytes # 0.6 (0-1.0) k/uL Eosinophils # 0.4 (0-0.7) k/uL Basophils # 0.1 (0-0.2) k/uL Sodium 140 (137-145) mmol/L Potassium 4.2 (3.5-5.1) mmol/L Chloride 105 (98-107) mmol/L Carbon Dioxide 25 (22-30) mmol/L Anion Gap 10 mmol/L BUN 30 H (9-20) mg/dL Creatinine 2.18 H (0.66-1.25) mg/dL Est GFR (CKD-EPI)AfAm 34 (>60 ml/min/1.73 sqM) Est GFR (CKD-EPI)NonAf 29 (>60 ml/min/1.73 sqM) Glucose 70 L (74-99) mg/dL POC Glucose (mg/dL) 79 (75-99) mg/dL POC Glu [employer] Management Technician ID Rubén Valenzuela Calcium 8.8 (8.4-10.2) mg/dL Total Bilirubin 0.5 (0.2-1.3) mg/dL AST 33 (17-59) U/L ALT 18 (4-49) U/L Alkaline Phosphatase 74 (38-126) U/L Total Protein 7.2 (6.3-8.2) g/dL Albumin 4.0 (3.5-5.0) g/dL 03/19/22 22:51 Upon arrival patient is placed into room 14. Thorough history and physical exam was performed. Laboratory studies are conducted. Patient does go for a CT of his head. 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 He is given a dose of prednisone and valacyclovir. Patient will be discharged home with prescriptions for valacyclovir, prednisone, [place]uber fresh ointment and refresh eyedrops. Instructed use the drops once per hour. Needs to follow up with ophthalmology within the next week. Follow up with his primary care doctor in 2-4 days and return for any new or worsening symptoms. Patient agreed to the treatment plan he was discharged home in stable condition Past Medical History Past Medical History: COPD, Diabetes Mellitus, Hypertension, Renal Disease History of Any Multi-Drug Resistant Organisms: None Reported Past Surgical History: Back Surgery, Orthopedic Surgery Additional Past Surgical History / Comment(s): FX Right leg & right arm repair; Cataract surg; Colonoscopy Past Anesthesia/Blood Transfusion Reactions: No Reported Reaction Past Psychological History: No Psychological Hx Reported Smoking Status: Former smoker Past Alcohol Use History: None Reported Past Drug Use History: None Reported - Past Family History Father Family Medical History: Cancer Course Vital Signs 03/19/22 03/19/22 14:29 16:03 Temperature 97.8 F Pulse Rate 64 63 Respiratory 16 18 Rate Blood Pressure 114/67 130/62 O2 Sat by Pulse 96 95 Oximetry Disposition Clinical Impression: Rajan's palsy, Hemiparesis of left side of face Disposition: HOME SELF-CARE Condition: Stable Instructions (If sedation given, give patient instructions): Rajan Palsy (ED) Additional Instructions: Please take the medications as directed. I recommend that you follow-up with your eye doctor to make sure that you're not getting an ulcer on your eye. Tape it shut at night and make sure that you are doing the eyedrops every hour. Return for any new or worsening symptoms Prescriptions: predniSONE [Deltasone] 60 mg PO DAILY 7 Days #21 tab Artificial Tears Ointment [Lubrifresh Pm Ointment] 1 gm OPHTHALMIC HS #3.5 gm Carboxymethylcellulose Sodium [Refresh Tears] 1 drop LEFT EYE Q1HR #15 ml valACYclovir HCL [Valtrex] 1,000 mg PO Q8HR #21 tab Is patient prescribed a controlled substance at d/c from ED?: No Referrals: Ishmael Simons MD [Primary Care Provider] - 1-2 days Time of Disposition: 18:03
--- NOTE | 2022-03-19 17:36 | CT ---
EXAMINATION TYPE: CT brain wo con DATE OF EXAM: 03/19/2022 COMPARISON: 04/30/2020 HISTORY: LT side facial drooping. Hx [place]. CT DLP: 1188.4 mGycm Automated exposure control for dose reduction was used. Ventricles have normal size. There is no mass effect or midline shift. No sign of intracranial hemorr gisella. The calvarium is intact. No evidence of cerebral edema. Skull base is intact. IMPRESSION: Negative unenhanced head CT scan. No change.
[2022-03-19] MEDS ORDERED: valACYclovir HCL 1,000 MG TABLET PO STA (17:43)
[2022-03-19] MEDS ORDERED: predniSONE 20 MG TAB PO STA (17:45)
== END 2022-03-19 18:27 | disposition home or self-care (01) ==
LOC: EC 14:21
DX: G51.0 Bell's palsy (principal); G81.94 Hemiplegia, unspecified affecting left nondominant side; E11.9 Type 2 diabetes mellitus without complications; I10 Essential (primary) hypertension; J44.9 Chronic obstructive pulmonary disease, unspecified; Z87.891 Personal history of nicotine dependence; Z79.4 Long term (current) use of insulin; Z79.82 Long term (current) use of aspirin; Z79.899 Other long term (current) drug therapy
CPT/HCPCS: 36415; 80053; 85025; 70450; 99284; J7512

== ENCOUNTER → 2022-03-23 | Outpatient (CLI) | payer MEDICARE ==
[2022-03-24 00:06] LABS: African American GFR (CKD) 29.1 (60.0-200.0); Anion Gap 13.3 mmol/L (10.00-18.00); Blood Urea Nitrogen 49.4 mg/dL (9.0-27.0); Calcium 9.2 mg/dL (8.7-10.3); Carbon Dioxide 23.4 mmol/L (20.0-27.5); Magnesium 2.2 mg/dL (1.5-2.4); Non-African American GFR(CKD) 25.1 (60.0-200.0); Potassium 5.4 mmol/L (3.5-5.5)
== END | disposition home or self-care (01) ==
LOC: LABWHC1 15:41
PROVIDERS: ATTEND Internal Medicine
DX: N18.32 Chronic kidney disease, stage 3b (principal)
CPT/HCPCS: 36415; 80048; 83735

== ENCOUNTER → 2022-05-13 | Outpatient (CLI) | payer MEDICARE ==
--- NOTE | 2022-05-13 11:42 | US ---
EXAMINATION TYPE: US abdomen complete DATE OF EXAM: 05/13/2022 COMPARISON: Renal ultrasound 06/11/2016 CLINICAL HISTORY: R94.5 ABN LIVER FUNCTION RESULTS. Liver function tests abnormal. TECHNIQUE: Multiple sonographic images of the abdomen are obtained. FINDINGS: EXAM MEASUREMENTS: Liver Length: 18.8 cm Gallbladder Wall: 0.22 cm Spleen: 14.1 cm Right Kidney: 10.1 x 4.4 x 3.6 cm Left Kidney: 12.6 x 5.1 x 5.5 cm CATTLE TESTER NOTES: Exam is limited due to gas and body habitus. Pancreas: Limited visibility. Liver: Limited- appears enlarged and very heterogeneous. No definitive peripheral nodularity. Gallbladder: Multiple hyperechoic foci seen within the neck. Largest: 0.8 x 0.9 x 0.7 cm. No pericho lecystic fluid or wall thickening. Evidence for sonographic Stein's sign: No CBD: Obscured Spleen: Appears enlarged Right Kidney: Anechoic area seen: 1.6 x 1.4 x 1.5 cm. Consistent with a cyst. No concerning mass or shadowing calculi. Cortical thinning demonstrated. Left Kidney: Appears slightly enlarged. Anechoic area seen: 3.5 x 3.9 x 3.3 cm. Consistent with a cys t. No concerning mass or shadowing calculi. Cortical thinning demonstrated. Upper IVC: Appears wnl Abd Aorta: Limited visibility. Proximal segment appears aneurysmal: 3.1 x 3.2 cm. Iliacs were obscur ed. IMPRESSION: * Enlarged heterogenous appearance to the liver concerning for hepatocellular disease. No concerning mass or intrahepatic biliary ductal dilatation identified. * Cholelithiasis without evidence for acute cholecystitis. 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 * Chronic renal disease with cortical thinning, right more than left.
== END | disposition home or self-care (01) ==
LOC: RADUSWWP 10:24
PROVIDERS: ATTEND Family Medicine
DX: N18.9 Chronic kidney disease, unspecified (principal); K80.20 Calculus of gallbladder without cholecystitis without obstruction; R94.5 Abnormal results of liver function studies
CPT/HCPCS: 76700

== ENCOUNTER → 2022-05-13 | Outpatient (CLI) | payer MEDICARE ==
[2022-05-13 18:29] LABS: African American GFR (CKD) 31.7 (60.0-200.0); Albumin 3.9 g/dL (3.8-4.9); Albumin/Globulin Ratio 1.22 (1.60-3.17); Anion Gap 11.7 mmol/L (10.00-18.00); BUN/Creat Ratio 14.09 Ratio (12.00-20.00); Blood Urea Nitrogen 32.4 mg/dL (9.0-27.0); Calcium 10.1 mg/dL (8.7-10.3); Carbon Dioxide 27.3 mmol/L (20.0-27.5); Globulin 3.2 g/dL (1.6-3.3); Non-African American GFR(CKD) 27.3 (60.0-200.0); Potassium 4.8 mmol/L (3.5-5.5); Total Bilirubin 0.5 mg/dL (0.30-1.20); Total Protein 7.1 g/dL (6.2-8.2)
== END | disposition home or self-care (01) ==
LOC: LABWHC1 10:28
PROVIDERS: ATTEND Nurse Practitioner Family
DX: N18.32 Chronic kidney disease, stage 3b (principal)
CPT/HCPCS: 36415; 80053

== ENCOUNTER → 2022-06-29 | Outpatient (CLI) | payer MEDICARE ==
[2022-06-29 17:21] LABS: Appearance,Urine Clear (Clear); Bilirubin,Urine Negative (Negative); Blood,Urine Negative (Negative); Color,Urine Light Yellow; Glucose,Urine (UA) Negative (Negative); Ketones,Urine Negative (Negative); Leukocyte Esterase,Urine Negative (Negative); Mucus,Urine Rare /hpf; Nitrite,Urine Negative (Negative); Protein,Urine 2+ (Negative); Specific Gravity,Urine 1.012 (1.001-1.035); Urobilinogen,Urine <2.0 mg/dL (<2.0)
[2022-06-29 22:28] LABS: Basophils # (A) 0.07 X 10*3/uL (0.00-0.10); Basophils % (A) 0.7 %; Eosinophils # (A) 0.34 X 10*3/uL (0.04-0.35); Eosinophils % (A) 3.3 %; HCT 46.8 % (39.6-50.0); HGB 14.7 g/dL (13.0-17.0); Immature Grans, Automated 0.7 %; Lymphocytes # (A) 1.29 X 10*3/uL (0.90-5.00); Lymphocytes % (A) 12.7 %; MCH 26.9 pg (27.0-32.0); MCHC 31.4 g/dL (32.0-37.0); MCV 85.6 fL (80.0-97.0); Mean Platelet Volume 12.3 fL (9.5-12.2); Monocytes # (A) 0.79 X 10*3/uL (0.20-1.00); Monocytes % (A) 7.8 %; NRBC Per 100 WBC 0 /100 WBCS (0.0-0.0); Neutrophils # (A) 7.59 X 10*3/uL (1.80-7.70); Neutrophils % (A) 74.8 %; Platelet Count 193 X 10*3/uL (140-440); RBC 5.47 X 10*6/uL (4.40-5.60); RDW 15.8 % (11.5-14.5); WBC 10.15 X 10*3/uL (4.50-10.00)
[2022-06-29 22:53] LABS: % Iron Saturation 23.8 (15.00-50.00); African American GFR (CKD) 36.2 (60.0-200.0); Albumin 3.8 g/dL (3.8-4.9); Albumin/Globulin Ratio 1.2 (1.60-3.17); Anion Gap 12.9 mmol/L (10.00-18.00); BUN/Creat Ratio 12.96 Ratio (12.00-20.00); Blood Urea Nitrogen 26.7 mg/dL (9.0-27.0); Calcium 9.2 mg/dL (8.7-10.3); Globulin 3.2 g/dL (1.6-3.3); Magnesium 1.9 mg/dL (1.5-2.4); Non-African American GFR(CKD) 31.2 (60.0-200.0); Phosphorus 3.4 mg/dL (2.4-5.1); Potassium 4.7 mmol/L (3.5-5.5); Total Bilirubin 0.5 mg/dL (0.30-1.20); Uric Acid 5.8 mg/dL (3.7-8.7)
[2022-06-29 22:59] LABS: Ferritin 41.8 ng/mL (22.0-322.0)
[2022-06-30 02:51] LABS: Urine Creatinine 70.6 mg/dL (39.0-259.0)
== END | disposition home or self-care (01) ==
LOC: LABWHC1 15:03
PROVIDERS: ATTEND Nurse Practitioner Family
DX: N39.0 Urinary tract infection, site not specified (principal); N25.81 Secondary hyperparathyroidism of renal origin; E55.9 Vitamin D deficiency, unspecified; M10.9 Gout, unspecified; N18.32 Chronic kidney disease, stage 3b; D63.1 Anemia in chronic kidney disease
CPT/HCPCS: 36415; 80053; 81001; 82043; 82306; 82570; 82728; 83540; 83550; 83735; 83970; 84100; 84550; 85025

== ENCOUNTER → 2022-08-31 | Outpatient (CLI) | payer MEDICARE ==
[2022-08-31 17:19] LABS: Partial Thromboplastin Time 25.3 sec (22.0-30.0); Prothrombin Time 10.6 sec (9.0-12.0)
[2022-09-01] LABS: African American GFR (CKD) 37.5 (60.0-200.0); Albumin 3.9 g/dL (3.8-4.9); Albumin/Globulin Ratio 1.44 (1.60-3.17); Anion Gap 12.7 mmol/L (10.00-18.00); BUN/Creat Ratio 14.8 Ratio (12.00-20.00); Blood Urea Nitrogen 29.6 mg/dL (9.0-27.0); Calcium 9.4 mg/dL (8.7-10.3); Carbon Dioxide 27.3 mmol/L (20.0-27.5); Globulin 2.7 g/dL (1.6-3.3); Non-African American GFR(CKD) 32.4 (60.0-200.0); Potassium 4.5 mmol/L (3.5-5.5); Total Bilirubin 0.5 mg/dL (0.30-1.20); Total Protein 6.6 g/dL (6.2-8.2)
[2022-09-01 00:02] LABS: HCT 47.2 % (39.6-50.0); HGB 15.1 g/dL (13.0-17.0); MCH 26.6 pg (27.0-32.0); MCV 83.1 fL (80.0-97.0); Mean Platelet Volume 12.5 fL (9.5-12.2); NRBC Per 100 WBC 0 /100 WBCS (0.0-0.0); Platelet Count 217 X 10*3/uL (140-440); RBC 5.68 X 10*6/uL (4.40-5.60); RDW 15.2 % (11.5-14.5); WBC 10.37 X 10*3/uL (4.50-10.00)
== END | disposition home or self-care (01) ==
LOC: LABPAT 14:24
PROVIDERS: ATTEND Orthopaedic Surgery
DX: Z01.812 Encounter for preprocedural laboratory examination (principal); M17.11 Unilateral primary osteoarthritis, right knee
CPT/HCPCS: 80053; 85027; 85610; 85730; 87070; 93005

== ENCOUNTER 2022-09-14 12:48 | Day surgery (SDC) | payer MEDICARE ==
[~2022-09-14 12:48] MED LIST changes: +ACETAMINOPHEN TAB 500 MG TAB PO PRN; +DEXAMETHASONE SOD PHOSPHATE 4 MG/ML 1 ML VIAL IV ONE; +GABAPENTIN 300 MG CAP PO PRN; -LACTATED RINGERS 1,000 ML IV SCH; -LIDOCAINE 1% 20 ML VIAL (10MG/ML) FOR IV START INTRADERMA PRN; +MELOXICAM 7.5 MG TAB PO PRN; +ONDANSETRON 4 MG/2 ML VIAL IVP ONE; +TRANEXAMIC ACID IN NACL,ISO-OS 1,000 MG in SALINE 1 100ML.BAG IVPB PRN; +ceFAZolin 3 GM in SODIUM CHLORIDE 0.9% 100 ML IVPB PRN
[2022-09-14 13:38] LABS: Glucose,Whole Blood 145 mg/dL (70-110)
[2022-09-14] MEDS ORDERED: LACTATED RINGERS 1,000 ML IV ONE ×3 (13:43→15:29)
[2022-09-14] MEDS ORDERED: bisacodyL 10 MG SUPP RECTAL PRN (13:46)
[2022-09-14] MEDS ORDERED: MAGNESIUM HYDROXIDE 2,400 MG/10 ML CUP PO PRN (13:46)
[2022-09-14] MEDS ORDERED: NALOXONE 0.4 MG/ML 1 ML VIAL IV PRN (13:46)
[2022-09-14] MEDS ORDERED: HYDROmorphone 0.5 MG/0.5 ML SYRINGE IVP PRN ×3 (13:46)
[2022-09-14] MEDS ORDERED: ONDANSETRON 4 MG/2 ML VIAL IVP PRN (13:46)
[2022-09-14] MEDS ORDERED: NA PHOS,M-B/NA PHOS,DI-BA 133 ML ENEMA RECTAL PRN (13:46)
[2022-09-14] MEDS ORDERED: MIDAZOLAM 2 MG/2 ML VIAL IVP ONE (13:48)
[2022-09-14] MEDS ORDERED: HYDROcodone/APAP 7.5-325MG 1 EACH TAB PO PRN (13:49)
[2022-09-14] MEDS ORDERED: LIDOCAINE 2% INJ 20 MG/ML (2 ML VIAL) ONE (14:06)
[2022-09-14] MEDS ORDERED: fentaNYL (PF) 50 MCG/ML 2 ML AMP ONE (14:06)
[2022-09-14] MEDS ORDERED: DEXAMETHASONE SOD PHOSPHATE 4 MG/ML 1 ML VIAL ONE (14:06)
[2022-09-14] MEDS ORDERED: HYDROmorphone (PF) 1 MG/ML ONE (14:06)
[2022-09-14] MEDS ORDERED: PROPOFOL 10 MG/ML 20 ML VIAL IV ONE (14:06)
[2022-09-14] MEDS ORDERED: ROPIVACAINE 5 MG/ML 30 ML VIAL ONE (14:06)
[2022-09-14] MEDS ORDERED: TRANEXAMIC ACID IN NACL,ISO-OS 1,000 MG/100 ML BAG ONE (14:06)
[2022-09-14] MEDS ORDERED: SUCCINYLCHOLINE CHLORIDE 200 MG/10 ML VIAL IV ONE (14:06)
[2022-09-14] MEDS ORDERED: ceFAZolin 1,000 MG in SODIUM CHLORIDE 0.9% 1,000 ML IRRIGATION ONE (14:11)
--- NOTE | 2022-09-14 15:33 | P.OP ---
Date of Procedure: 09/14/22 Preoperative Diagnosis: Severe osteoarthritis right knee Postoperative Diagnosis: Severe osteoarthritis right knee Procedure(s) Performed: Right total knee arthroplasty Implants: Tran & Nephew Journey II CR Oxinium cruciate retaining femoral component size 7, right Tran [employer] Nephew Journey nonporous tibial baseplate size 6, right Tran [employer] Nephew Journey II, XLPE Deep Dished articular insert, size 9 mm, Size 5- 6, right Tr[employer] Nephew Journey Dayna II resurfacing patellar component, oval, 35 mm All components were cemented using Palacos R bone cement The articulation is Oxinium on polyethylene Anesthesia: MANUELA Surgeon: Adonis Costa Transonic Engineer #1: Veda Winn Estimated Blood Loss (ml): 50 Pathology: other (Bone and cartilage) Condition: stable Disposition: PACU Indications for Procedure: This is a 72-year-old male with a history of right knee osteoarthritis. The patient's knee is end-stage, and conservative management has failed. The operation of knee replacement has been discussed at length in the office, as well as potential risks and complications. These are inclusive of, but not limited to: Infection, bleeding, scarring, discomfort, stiffness, blood vessel and nerve damage, need for further surgery, failure to relieve symptoms, persistence, recurrence, or worsening of problems, loosening, dislocation, wear, blood clot, pulmonary embolism, , gait dysfunction, stiffness, and other risks as discussed in the office. Patient elects to proceed and the consent form has been signed. Operative Findings: The operative findings are consistent with severe osteoarthritis of the right knee Description of Procedure: Patient was seen in the preoperative area and the consent was reviewed and the operative site was marked with a skin marker. The patient verified the procedure and the operative site. An adductor canal pain catheter and an IPACK block were placed by anesthesia in the preoperative area. The patient was then brought to the operating room and positioned on the operating room table in the supine position. Preoperative antibiotics and a gram of transexamic acid were given intravenously. A general anesthetic was administered by the anesthesia department. Care was taken to make sure that all pressure points were adequately padded. A tourniquet was placed on the upper thigh and the lower extremity was prepped with ChloraPrep and draped in usual sterile fashion. A universal timeout was then performed which confirmed the patient's name, surgical site, ALLERGIES, and consent. The lower extremity was then exsanguinated and tourniquet was inflated to 250 mmHg. A standard anterior midline approach to the knee was performed. The skin and subcutaneous tissue were sharply dissected down to the patellar tendon. A medial parapatellar arthrotomy was then performed. The knee was then extended, the patellar was everted, and the knee was flexed. The infra-patellar fat pad was removed in order to enhance exposure. The anterior horns of both menisci were excised, and a release was performed to the posterior medial aspect of the knee. On gross visual inspection, there was complete loss of articular cartilage in the medial and patellofemoral joint spaces. There was also significant cartilage damage in the lateral compartment. There were multiple periarticular osteophytes globally about the knee which were then removed with a Ronguer. The femoral canal was then opened with the 9.5 mm intramedullary drill. The 8 mm intramedullary jaqui was then inserted into the femoral canal with the distal femoral cutting guide set for 5 of valgus. The distal femoral cutting block was then pinned in place. The intramedullary jaqui was then removed, and the distal femur was then cut. The cutting block was then removed and the cut was checked for symmetry. The resected bone was then measured to confirm the appropriate distal femoral resection. Next, the sizing guide was then placed and set for 3 external rotation based off of the epicondylar axis and Jasper's line. Pins were then placed and the drill holes, and the femur was sized with the sizing stylus. The pins were then removed, and the sizing guide was then removed. The spikes of the appropriate size femoral block was then placed into the predrilled holes, and malleted into place. Two 45 mm pins were then placed into the fixation holes on the cutting block. An preston wing was then used to ensure there would be no notching with the anterior cut. The anterior condyles were cut without notching. The anterior chord cut was then performed, followed by the posterior cut, posterior chamfer cut, and the anterior chamfer cut. The collateral ligaments were protected during the entire process. The cutting block was then removed. Any remaining bone and osteophytes were removed from the femur with a Ronguer. Attention was then directed to the tibia. The remaining ACL was removed with a Ronguer, and the tibia was then gently subluxed forward with a large bent knee retractor. Any remaining menisci were excised. The posterior lateral corner was cauterized in order to coagulate the lateral geniculate artery. The extra medullary tibial cutting guide was then placed, set for the appropriate rotation, slope, and depth of resection. The proximal tibia cutting guide was then pinned in place. Proximal tibia was then cut and sized. A curved osteotome was then used to remove any posterior osteophytes from the distal femur. The femoral trial was placed. A narrow saw blade was then used to remove the anterior intracondylar femoral bone. The CR notch trial was then placed. The tibial trial was placed with the appropriate-sized insert. The knee was able to fully extend and flex to 130 and was stable throughout all range of motion. The knee was then extended and the patella was everted. Patella was then measured, and then using an osteotomy guide, the patella was cut at the appropriate level. The patellar component was sized. The patellar drill guide was placed and the patella was drilled. The patella trial was then placed. The knee was then taken through range of motion with the patella trial and the patella tracked normally using the no thumbs technique. The patella trial was then removed. The knee was then flexed and lug holes were drilled through the femoral trial and the femoral trial was then removed. The tibial was then re- exposed, and the tibial broach guide was then pinned in place after it was set for the appropriate rotation to allow for the most coverage without overhang. The tibia was then reamed and broached. The femoral canal was plugged with autologous bone. The cut surfaces of bone were then irrigated with pulsatile lavage. The knee was also irrigated with Irr isept solution. The components were then opened, the cement was mixed. Cement was placed on the backside of the femoral, tibial, and patellar components. Cement was then applied to the tibial surface and pressurized into the surface using finger pressurization technique. The tibial component was then applied and excess cement was removed after it was impacted securely noted to be flush with the cut surface. In similar fashion, the cement was applied to the cut femoral surface, pressurized and using finger pressurization the component was impacted in place. Excess cement was removed. The polyethylene spacer was then implanted and locked into position. Patellar component was then applied in a similar technique and the patellar clamp was used to hold patella in place while the cement hardened. The knee was held in full extension while the cement hardened. Once the cement had fully hardened, the knee was reinspected. Any other cement extrusion was removed the final range of motion testing showed range of motion from 0-130 with excellent stability, both medial and laterally and appropriate alignment of the leg. Patella tracked normally[default value] After the cemented hardened, the tourniquet was released and hemostasis was obtained. A second gram of transexamic acid was given intravenously. The knee was again irrigated. The knee was again taken through range of motion and found to be stable throughout all range of motion of 0-130, and the patella tracked normally. The fascia was then closed with 0 Vicryl followed by #2 strata fix suture. The subcutaneous tissue was closed with 3-0 Vicryl and 3-0 strata fix. Exofin glue was used for the skin and placed with the knee in flexion. After the glue had dried, and Optafoam silver impregnated dressing was applied. A lightly compressive dressing was applied using web roll and Tom wrap. Patient was then transferred to the stretcher and taken to recovery room in stable condition. Sponge and needle counts were correct. The assistant production manager SHADY Goldstein was required due the complexity surgery and the need for a skilled instructor adjunct surgical technician. She assisted in positioning, draping, retraction, and closure of the wound.
[2022-09-14] MEDS ORDERED: ROPIVACAINE 1,100 MG, SODIUM CHLORIDE 0.9% 500 ML 330 ML, EMPTY PAIN BALL 1 EACH MISCELLANE PRN ×2 (16:05)
--- NOTE | 2022-09-14 16:10 | XR ---
EXAMINATION TYPE: XR knee limited RT DATE OF EXAM: 09/14/2022 4:05 PM INDICATION: Patient age:Male; 72 years old; Reason for study: Evaluation for Postop abnormality and alignment; PHH. COMPARISON: None. TECHNIQUE: The Right knee(s) was examined in frontal and crosstable lateral projections. FINDINGS: Postsurgical changes from right total knee arthroplasty with distal femoral proximal tibi al components. Hardware appears intact with appropriate alignment. No acute fractures. There is assoc iated soft tissue gas and edema. IMPRESSION: Post surgical changes from right total knee arthroplasty. Hardware appears intact with appropriate al ignment.
[2022-09-14] MEDS: HYDROmorphone 0.5 MG/0.5 ML SYRINGE IVP PRN ×4 (16:14→16:45)
[2022-09-14 17:21] LABS: Glucose,Whole Blood 189 mg/dL (70-110)
[2022-09-14] MEDS: LACTATED RINGERS 1,000 ML IV SCH (17:40)
[2022-09-14] MEDS: HYDROcodone/APAP 7.5-325MG 1 EACH TAB PO PRN (17:52)
[2022-09-14] MEDS: SODIUM CHLORIDE 0.9% 1,000 ML IV SCH (17:53)
[2022-09-14] MEDS ORDERED: DEXTROSE 50% SYRINGE 50 ML IVP PRN ×2 (19:40)
[2022-09-14] MEDS ORDERED: AMMONIUM LACTATE 12% CREAM 140 GM TUBE TOPICAL PRN (19:41)
[2022-09-14] MEDS ORDERED: diphenhydrAMINE 25 MG CAP PO PRN (19:41)
[2022-09-14] MEDS ORDERED: TRIAMCINOLONE 0.1% CREAM 80 GM TUBE TOPICAL PRN (19:41)
[2022-09-14] MEDS ORDERED: FLUTICASONE 50MCG/SPRAY NASAL 16GM NASAL PRN (19:41)
[2022-09-14 20:29] LABS: Glucose,Whole Blood 320 mg/dL (70-110)
[2022-09-14] MEDS ORDERED: ATORVASTATIN 40 MG TAB PO SCH (21:00)
[2022-09-14] MEDS ORDERED: ARTIFICIAL TEARS OINTMENT 3.5 GM TUBE RIGHT EYE SCH (21:00)
[2022-09-14] MEDS ORDERED: MELATONIN 5 MG TABLET PO SCH (21:00)
[2022-09-14] MEDS ORDERED: INSULIN DETEMIR (LEVEMIR) 100 UNIT/ML SYR SQ SCH (21:00)
[2022-09-14] MEDS ORDERED: FLAXSEED OIL PO SCH (21:00)
[2022-09-14] MEDS ORDERED: SENNOSIDES-DOCUSATE SODIUM 1 EACH TAB PO SCH (21:00)
[2022-09-14] MEDS: ceFAZolin 3 GM in SODIUM CHLORIDE 0.9% 100 ML IVPB SCH (21:40)
[2022-09-14] MEDS: ASPIRIN 325 MG TAB PO SCH (21:41)
[2022-09-14] MEDS: INSULIN ASPART (NovoLOG) 100 UNIT/ML VIAL SQ SCH (21:41)
[2022-09-14] MEDS: ARTIFICIAL TEARS-HYPROMELLOSE DROPS 15 ML BTL LEFT EYE SCH ×2 (21:41→21:55)
[2022-09-14] MEDS: atenoloL 50 MG TAB PO SCH (21:42)
[2022-09-14] MEDS: PANTOPRAZOLE 40 MG TABLET PO SCH (21:42)
[2022-09-14] MEDS: amLODIPine 5 MG TAB PO SCH (21:42)
[2022-09-14] MEDS: TAMSULOSIN 0.4 MG CAP.ER.24H PO SCH (21:42)
[2022-09-15] MEDS: ARTIFICIAL TEARS-HYPROMELLOSE DROPS 15 ML BTL LEFT EYE SCH ×12 (00:14→12:16)
[2022-09-15] MEDS: HYDROcodone/APAP 7.5-325MG 1 EACH TAB PO PRN ×2 (00:45→06:07)
[2022-09-15] MEDS ORDERED: MAGNESIUM OXIDE 400 MG TAB PO SCH (01:00)
[2022-09-15] MEDS: LACTATED RINGERS 1,000 ML IV SCH (03:26)
[2022-09-15] MEDS: PANTOPRAZOLE 40 MG TABLET PO SCH (06:08)
[2022-09-15] MEDS: ceFAZolin 3 GM in SODIUM CHLORIDE 0.9% 100 ML IVPB SCH (06:08)
[2022-09-15 06:16] LABS: Glucose,Whole Blood 314 mg/dL (70-110)
[2022-09-15] MEDS: INSULIN ASPART (NovoLOG) 100 UNIT/ML VIAL SQ SCH ×2 (06:19→11:58)
--- NOTE | 2022-09-15 07:08 | P.ANPRN ---
Procedure Note - Anesthesia - Nerve Block Performed Right Adductor Canal Infusion Time Out Performed: Yes Date of Procedure: 09/14/22 Procedure Start Time: 13:47 Procedure Stop Time: 13:56 Location of Patient: PreOp Indication: Acute Post-Operative Pain, Requested by Surgeon Sedation Type: Sedate with meaningful contact maintained Preparation: Sterile Prep, Sterile Dressing Position: Supine Catheter: Indwelling Needle Types: Pajunk Needle Gauge: 21 Ultrasound used to visualize needle placement: Yes Ultrasound used to observe medication spread: Yes Blood Aspirated: No Pain Paresthesia on Injection Noted: No Resistance on Injection: Normal Image Stored and Saved: Yes Events: Uneventful and Well Tolerated (Ropivacaine 0.5% 20 mL plus dexamethasone 4 mg)
--- NOTE | 2022-09-15 07:09 | P.ANPRN ---
Procedure Note - Anesthesia - Nerve Block Performed Right Il[place] Single Time Out Performed: Yes Date of Procedure: 09/14/22 Procedure Start Time: 13:57 Procedure Stop Time: 14:02 Location of Patient: PreOp Indication: Acute Post-Operative Pain, Requested by Surgeon Sedation Type: Sedate with meaningful contact maintained Preparation: Sterile Prep Position: Supine Needle Types: Pajunk Needle Gauge: 21 Ultrasound used to visualize needle placement: Yes Ultrasound used to observe medication spread: Yes Blood Aspirated: No Pain Paresthesia on Injection Noted: No Resistance on Injection: Normal Image Stored and Saved: Yes Events: Uneventful and Well Tolerated (Ropivacaine 0.5% 20 mL plus dexamethasone 4 mg)
--- NOTE | 2022-09-15 07:13 | P.PN ---
Progress Note - Text 09/15/22 628am 72-year-old male status post total knee replacement by Dr. lainez off. Patient has an On-Q pump for postop pain control with the solution running at 8 mL an hour with a VAS of 1-2. Dressing clean dry and intact. Plan to continue On-Q pump infusion
[2022-09-15 07:28] VITALS: BP 136/75; PULSE 65; RESP 13; TEMP 97.4
[2022-09-15] MEDS: TAMSULOSIN 0.4 MG CAP.ER.24H PO SCH (08:13)
[2022-09-15] MEDS: amLODIPine 5 MG TAB PO SCH (08:16)
[2022-09-15] MEDS: ASPIRIN 325 MG TAB PO SCH (08:16)
[2022-09-15] MEDS: atenoloL 50 MG TAB PO SCH (08:16)
[2022-09-15] MEDS: SODIUM CHLORIDE 0.9% 1,000 ML IV SCH (08:23)
[2022-09-15] MEDS ORDERED: ZINC SULFATE 220 MG CAP PO SCH (09:00)
[2022-09-15] MEDS ORDERED: NON FORMULARY DRUG (Lutein [Lutein] 20 MG Capsule) PO SCH (09:00)
[2022-09-15] MEDS ORDERED: DULoxetine HCL 60 MG CAPSULE.DR PO SCH (09:00)
[2022-09-15] MEDS ORDERED: NON FORMULARY DRUG (Biotin [Biotin] 10,000 MCG Capsule) PO SCH (09:00)
[2022-09-15] MEDS ORDERED: LORATADINE 10 MG TAB PO SCH (09:00)
[2022-09-15] MEDS ORDERED: SUPER B COMPLEX PO SCH (09:00)
[2022-09-15] MEDS ORDERED: ASCORBIC ACID 500 MG TAB PO SCH (09:00)
[2022-09-15] MEDS ORDERED: LACTOBACILLUS ACIDOPH & BULGAR 1 EACH PACKET PO SCH (09:00)
[2022-09-15] MEDS ORDERED: MULTIVITAMINS, THERA 1 EACH TAB PO SCH (09:00)
[2022-09-15] MEDS ORDERED: CHOLECALCIFEROL 25 MCG (1000 IU) TABLET PO SCH (09:00)
[2022-09-15] MEDS ORDERED: FUROSEMIDE 10 MG TAB PO SCH (09:00)
[2022-09-15] MEDS ORDERED: LOSARTAN 25 MG TAB PO SCH (09:00)
[2022-09-15] MEDS ORDERED: SEVELAMER 800 MG TAB PO SCH (09:00)
--- NOTE | 2022-09-15 09:50 | P.DS ---
Providers Expected date of discharge: 09/15/22 Attending physician: Adonis Costa Consults: 09/14/22 13:46 Consult Physician Routine Consulting Provider: Kathryn Hayes Consult Reason/Comments: medical management Do you want consulting provider notified?: Yes Primary care physician: Ishmael Simons - Discharge Diagnosis(es) (1) Osteoarthritis of right knee Current Visit: Yes Status: Acute (2) Status post total right knee replacement Current Visit: Yes Status: Acute Hospital Course: This is a pleasant 72-year-old male last seen in our office with complaints of right knee pain. Patient has known history of degenerative arthritis of the right knee and presented to discuss options. After discussion and consideration, patient elected to proceed with a total knee arthroplasty of the right knee. The patient was seen preoperatively and medically cleared for surgery by his primary care physician. The patient was admitted to [facility] and underwent right total knee arthroplasty on 09/14/[address] Adonis Costa. The procedure was performed without complications or sequelae. The patient has done well postoperatively. The patient was seen and evaluated at bedside today and denies any new complaints. Pain is reasonably controlled. Dressing is clean dry and intact. Incision looks fine with no erythema or active drainage. Calf is soft and nontender. The patient has full foot and ankle motion without difficulty. Patient's right lower extremity is neurovascular intact. Patient is orthopedically stable for discharge to home today. Patient Condition at Discharge: Stable Plan - Discharge Summary Discharge Rx Participant: No New Discharge Prescriptions: New HYDROcodone/APAP 7.5-325MG [[place] 7.5-325] 1 - 2 tab PO Q6H PRN #32 tab PRN Reason: Pain Aspirin 325 mg PO BID #60 tab Sennosides [Senokot] 2 tab PO DAILY PRN #60 tablet PRN Reason: Constipation No Action Losartan [Cozaar] 25 mg PO DAILY atenoloL [Tenormin] 50 mg PO BID Omeprazole [PriLOSEC] 20 mg PO BID Tamsulosin HCl [Flomax] 0.4 mg PO DAILY DULoxetine HCL [Cymbalta] 120 mg PO DAILY Insulin Lispro [humaLOG Kwikpen] See Protocol SQ ACHS Chlorpheniramine Maleate [Chlor-Trimeton] 4 mg PO DAILY PRN PRN Reason: Allergy Symptoms Cetirizine HCl 10 mg PO DAILY calcitrioL [Rocaltrol] 0.25 mcg PO MO Artificial Tears Ointment [Lubrifresh Pm Ointment] 1 gm OPHTHALMIC HS #3.5 gm Cholecalciferol [Vitamin D3 (25 Mcg = 1000 Iu)] 50 mcg PO DAILY Ascorbic Acid [Vitamin C] 2,000 mg PO DAILY Magnesium 650mg 650 mg PO DAILY Cold Pressed Black Seed Oil 1 cap PO DAILY Biotin 10,000 mcg PO DAILY Triamcinolone 0.1% Cream [Kenalog 0.1% Cream] 1 applic TOPICAL BID PRN PRN Reason: Rash Torsemide [Demadex] 5 mg PO QAM L.acidoph,Paracasei, B.lactis [Probiotic] 1 cap PO DAILY amLODIPine [Norvasc] 5 mg PO DAILY Ammonium Lactate Cream [Lac-Hydrin 12% Cream] 1 applic TOPICAL BID PRN PRN Reason: FEET Zinc 50 mg PO DAILY Insulin Glargine,Hum.rec.anlog [Lantus Solostar Pen] 50 - 60 unit SQ HS HYDROcodone/APAP 10-325MG [[place] 10-325] 1 tab PO QID PRN PRN Reason: Pain Atorvastatin Calcium [Lipitor] 40 mg PO HS tadalafiL [Cialis] 10 mg PO DAILY PRN PRN Reason: ERECTILE DYSFUNCTION Carboxymethylcellulose Sodium [Refresh Tears] 1 drop LEFT EYE Q1HR #15 ml Melatonin 5 mg PO HS Aspirin EC [Ecotrin Low Dose] 81 mg PO DAILY Flaxseed Oil 300mg 300 mg PO HS Multivit-Min/FA/Lycopen/Lutein [Centrum Silver Men Tablet] 1 tab PO DAILY Lutein 40 mg PO DAILY Super B Complex 1 cap PO DAILY Elderberry Fruit and Flower [Black Elderberry 575 mg Cap] 1 cap PO DAILY Testosterone Cypionate [Depo-Testosterone] 200 mg IM Q14D Mometasone Furoate [Nasonex 50 MCG] 1 spray NASAL DAILY PRN PRN Reason: Allergy Symptoms sevelamer HCL [Renagel] 800 mg PO DAILY Discharge Medication List DULoxetine HCL [Cymbalta] 120 mg PO DAILY 10/08/16 [History] Losartan [Cozaar] 25 mg PO DAILY 10/08/16 [History] Omeprazole [PriLOSEC] 20 mg PO BID 10/08/16 [History] Tamsulosin HCl [Flomax] 0.4 mg PO DAILY 10/08/16 [History] atenoloL [Tenormin] 50 mg PO BID 10/08/16 [History] Chlorpheniramine Maleate [Chlor-Trimeton] 4 mg PO DAILY PRN 05/24/18 [History] Insulin Lispro [humaLOG Kwikpen] See Protocol SQ ACHS 05/24/18 [History] Atorvastatin Calcium [Lipitor] 40 mg PO HS 09/08/21 [History] Cetirizine HCl 10 mg PO DAILY 09/08/21 [History] HYDROcodone/APAP 10-325MG [[place] 10-325] 1 tab PO QID PRN 09/08/21 [History] Insulin Glargine,Hum.rec.anlog [Lantus Solostar Pen] 50 - 60 unit SQ HS 09/08/21 [History] calcitrioL [Rocaltrol] 0.25 mcg PO MO 09/08/21 [History] tadalafiL [Cialis] 10 mg PO DAILY PRN 09/08/21 [History] Ammonium Lactate Cream [Lac-Hydrin 12% Cream] 1 applic TOPICAL BID PRN 03/19/22 [History] Artificial Tears Ointment [Lubrifresh Pm Ointment] 1 gm OPHTHALMIC HS #3.5 gm 03/19/22 [Rx] Ascorbic Acid [Vitamin C] 2,000 mg PO DAILY 03/19/22 [History] Aspirin EC [Ecotrin Low Dose] 81 mg PO DAILY 03/19/22 [History] Biotin 10,000 mcg PO DAILY 03/19/22 [History] Carboxymethylcellulose Sodium [Refresh Tears] 1 drop LEFT EYE Q1HR #15 ml 03/19/22 [Rx] Cholecalciferol [Vitamin D3 (25 Mcg = 1000 Iu)] 50 mcg PO DAILY 03/19/22 [History] Cold Pressed Black Seed Oil 1 cap PO DAILY 03/19/22 [History] Elderberry Fruit and Flower [Black Elderberry 575 mg Cap] 1 cap PO DAILY 03/19/22 [History] Flaxseed Oil 300mg 300 mg PO HS 03/19/22 [History] L.acidoph,Paracasei, B.lactis [Probiotic] 1 cap PO DAILY 03/19/22 [History] Lutein 40 mg PO DAILY 03/19/22 [History] Magnesium 650mg 650 mg PO DAILY 03/19/22 [History] Melatonin 5 mg PO HS 03/19/22 [History] Multivit-Min/FA/Lycopen/Lutein [Centrum Silver Men Tablet] 1 tab PO DAILY 03/19/22 [History] Super B Complex 1 cap PO DAILY 03/19/22 [History] Testosterone Cypionate [Depo-Testosterone] 200 mg IM Q14D 03/19/22 [History] Torsemide [Demadex] 5 mg PO QAM 03/19/22 [History] Triamcinolone 0.1% Cream [Kenalog 0.1% Cream] 1 applic TOPICAL BID PRN 03/19/22 [History] Zinc 50 mg PO DAILY 03/19/22 [History] amLODIPine [Norvasc] 5 mg PO DAILY 03/19/22 [History] Mometasone Furoate [Nasonex 50 MCG] 1 spray NASAL DAILY PRN 09/09/22 [History] sevelamer HCL [Renagel] 800 mg PO DAILY 09/09/22 [History] Aspirin 325 mg PO BID #60 tab 09/14/22 [Rx] HYDROcodone/APAP 7.5-325MG [[place] 7.5-325] 1 - 2 tab PO Q6H PRN #32 tab 09/14/22 [Rx] Sennosides [Senokot] 2 tab PO DAILY PRN #60 tablet 09/14/22 [Rx] Follow up Appointment(s)/Referral(s): Ishmael Simons MD [Primary Care Provider] - 1 Week [facility] [NON-STAFF] - 1 Week (*Please call [facility] once home to arrange delivery of the Continuous Passive Motion (CPM) machine. ) [facility] [NON-STAFF] - 1-2 Days ([facility] will call you to schedule your in home nursing and physical therapy visits. ) Adonis Costa DO [Doctor of Osteopathic Medicine] - 09/29/22 2:15 pm Activity/Diet/Wound Care/Special Instructions: Weightbearing as tolerated with a walker. CPM 5-6h daily as tolerated. Leave dressing intact. Dressing may be removed by home care nurse or by patient in 7 days. Then change dressing twice daily until follow up. May shower with initial dressing intact and after removal. If dressing become saturated, please remove. Recommend use of compression stockings daily until follow up to help prevent swelling and blood clots. May remove at night before sleeping. Please take aspirin 325mg twice daily for 30 days to prevent blood clots. Please follow up with [facility] and call with any questions or concerns, . Discharge Disposition: HOME WITH HOME HEALTH SERVICES
[2022-09-15 10:22] LABS: Basophils # (A) 0.02 X 10*3/uL (0.00-0.10); Basophils % (A) 0.1 %; Eosinophils # (A) 0 X 10*3/uL (0.04-0.35); Eosinophils % (A) 0 %; HCT 42.6 % (39.6-50.0); HGB 13.7 g/dL (13.0-17.0); Immature Grans, Automated 0.7 %; Lymphocytes # (A) 0.92 X 10*3/uL (0.90-5.00); Lymphocytes % (A) 6.7 %; MCH 26.9 pg (27.0-32.0); MCHC 32.2 g/dL (32.0-37.0); MCV 83.5 fL (80.0-97.0); Mean Platelet Volume 11.9 fL (9.5-12.2); Monocytes # (A) 0.96 X 10*3/uL (0.20-1.00); NRBC Per 100 WBC 0 /100 WBCS (0.0-0.0); Neutrophils # (A) 11.67 X 10*3/uL (1.80-7.70); Neutrophils % (A) 85.5 %; Platelet Count 224 X 10*3/uL (140-440); RDW 14.9 % (11.5-14.5); WBC 13.66 X 10*3/uL (4.50-10.00)
[2022-09-15 10:51] LABS: Glucose,Whole Blood 336 mg/dL (70-110)
[2022-09-15] MEDS ORDERED: INSULIN DETEMIR (LEVEMIR) 100 UNIT/ML SYR SQ SCH (21:00)
== END 2022-09-15 14:35 | disposition home health service (06) ==
LOC: OR 12:48 → 4SSUR 15:57 → OR 09-15 14:35
PROVIDERS: ATTEND Orthopaedic Surgery
DX: M17.11 Unilateral primary osteoarthritis, right knee (principal); G89.18 Other acute postprocedural pain; I10 Essential (primary) hypertension; E78.5 Hyperlipidemia, unspecified; E11.9 Type 2 diabetes mellitus without complications; F32.A Depression, unspecified; Z82.49 Family history of ischemic heart disease and other diseases of the circulatory system; Z83.3 Family history of diabetes mellitus; Z79.899 Other long term (current) drug therapy
CPT/HCPCS: 27447; 97161; 64999; 64448; 76942; 85025; 73560; C1713; C1776; C1751; J2250; J0330; J1100; J0690 ×3; J2405; J3010; J1170 ×2; J2795; J2704; J2001; 88300

== ENCOUNTER → 2022-09-21 | Outpatient (CLI) | payer MEDICARE ==
--- NOTE | 2022-09-21 14:32 | US ---
EXAMINATION TYPE: US venous doppler duplex LE RT DATE OF EXAM: 09/21/2022 2:17 PM COMPARISON: NONE CLINICAL HISTORY: M25.561 I80.9. Right lower extremity pain following knee surgery SIDE PERFORMED: Right TECHNIQUE: The lower extremity deep venous system is examined utilizing real time linear array sonog gissel with graded compression, doppler sonography and color-flow sonography. VESSELS IMAGED: Common Femoral Vein Deep Femoral Vein Greater Saphenous Vein * Femoral Vein Popliteal Vein Small Saphenous Vein * Proximal Calf Veins (* superficial vessels) Right Leg: Negative for DVT IMPRESSION: No evidence for DVT at this time.
== END | disposition home or self-care (01) ==
LOC: RADUSWWP 13:47
PROVIDERS: ATTEND Orthopaedic Surgery
DX: M79.604 Pain in right leg (principal); I80.9 Phlebitis and thrombophlebitis of unspecified site

== ENCOUNTER → 2022-10-14 | Outpatient (CLI) | payer MEDICARE ==
[2022-10-14 23:13] LABS: % Iron Saturation 29.02 (15.00-50.00); African American GFR (CKD) 37.5 (60.0-200.0); Albumin/Globulin Ratio 1.41 (1.60-3.17); Anion Gap 12.5 mmol/L (10.00-18.00); BUN/Creat Ratio 14.45 Ratio (12.00-20.00); Blood Urea Nitrogen 28.9 mg/dL (9.0-27.0); Calcium 9.6 mg/dL (8.7-10.3); Carbon Dioxide 26.1 mmol/L (20.0-27.5); Globulin 2.8 g/dL (1.6-3.3); Non-African American GFR(CKD) 32.4 (60.0-200.0); Potassium 4.8 mmol/L (3.5-5.5); Total Bilirubin 0.6 mg/dL (0.30-1.20); Total Protein 6.8 g/dL (6.2-8.2); Uric Acid 5.6 mg/dL (3.7-8.7)
[2022-10-15 00:19] LABS: Urine Creatinine 81.9 mg/dL (39.0-259.0)
[2022-10-15 00:43] LABS: HCT 46.2 % (39.6-50.0); HGB 14.2 g/dL (13.0-17.0); MCH 26.2 pg (27.0-32.0); MCHC 30.7 g/dL (32.0-37.0); MCV 85.1 fL (80.0-97.0); Mean Platelet Volume 12.1 fL (9.5-12.2); NRBC Per 100 WBC 0 /100 WBCS (0.0-0.0); Platelet Count 232 X 10*3/uL (140-440); RBC 5.43 X 10*6/uL (4.40-5.60); RDW 15.9 % (11.5-14.5); WBC 12.72 X 10*3/uL (4.50-10.00)
[2022-10-15 12:28] LABS: Appearance,Urine Clear (Clear); Bilirubin,Urine Negative (Negative); Blood,Urine Negative (Negative); Color,Urine Yellow (Yellow); Ketones,Urine Negative (Negative); Nitrite,Urine Negative (Negative); Specific Gravity,Urine 1.021 (1.001-1.030)
[2022-10-15 12:35] LABS: Bacteria,Urine None Seen /HPF (None Seen)
== END | disposition home or self-care (01) ==
LOC: LABWHC1 15:21
PROVIDERS: ATTEND Nurse Practitioner Family
DX: N25.81 Secondary hyperparathyroidism of renal origin (principal); N18.32 Chronic kidney disease, stage 3b; D63.1 Anemia in chronic kidney disease; N39.0 Urinary tract infection, site not specified; E55.9 Vitamin D deficiency, unspecified; M10.9 Gout, unspecified
CPT/HCPCS: 36415; 80053; 81001; 82043; 82306; 82570; 82728; 83540; 83550; 83735; 83970; 84100; 84550; 85027

== ENCOUNTER → 2022-11-02 | Outpatient (CLI) | payer MEDICARE ==
--- NOTE | 2022-11-02 16:03 | US ---
EXAMINATION TYPE: US kidneys/renal and bladder DATE OF EXAM: 11/02/2022 COMPARISON: NONE CLINICAL HISTORY: N18.32 STAGE 3 CKD. EXAM MEASUREMENTS: Right Kidney: 9.8 x 3.2 x 3.8 cm Left Kidney: 12.6 x 5.1 x 5.6 cm Right Kidney: hyperechoic, cyst measuring 1.6 x 1.7 x 1.6cm Left Kidney: cyst measuring 3.3 x 3.6 x 4.2cm Bladder: wnl There is no evidence for hydronephrosis at this point in time. No nephrolithiasis is seen. No solid masses are identified. The urinary bladder is anechoic. Bilateral ureteral jets are seen. IMPRESSION: Renal cystic changes. Correlate for medical renal disease.
== END | disposition home or self-care (01) ==
LOC: RADUSWWP 14:55
PROVIDERS: ATTEND Internal Medicine
DX: N18.32 Chronic kidney disease, stage 3b (principal); N28.1 Cyst of kidney, acquired
CPT/HCPCS: 76770

== ENCOUNTER → 2023-06-06 | Outpatient (CLI) | payer MEDICARE ==
[2023-06-06 20:41] LABS: ALT 20 U/L (10-49); AST 24 U/L (14-35); Albumin 4.1 d/dL (3.8-4.9); Albumin/Globulin Ratio 1.64 Ratio (1.60-3.17); Alkaline Phosphatase 84 U/L (41-126); BUN/Creat Ratio 13.52 Ratio (12.00-20.00); Blood Urea Nitrogen 31.1 mg/dL (9.0-27.0); Calcium 9.6 mg/dL (8.7-10.3); Carbon Dioxide 25.4 mmol/L (21.6-31.8); Chloride 104 mmol/L (96-109); Globulin 2.5 d/dL (1.6-3.3); Glucose 234 mg/dL (70-110); Potassium 5.1 mmol/L (3.5-5.5); Sodium 140 mmol/L (135-145); Total Bilirubin 0.3 mg/dL (0.3-1.2); Total Protein 6.6 d/dL (6.2-8.2)
== END | disposition home or self-care (01) ==
LOC: LABWHC1 15:08
PROVIDERS: ATTEND Internal Medicine
DX: N18.32 Chronic kidney disease, stage 3b (principal)
CPT/HCPCS: 36415; 80053

== ENCOUNTER → 2023-08-19 | Outpatient (CLI) | payer MEDICARE ==
[2023-08-20 02:07] LABS: HCT 45.5 % (39.6-50.0); HGB 14.1 g/dL (13.0-17.0); MCH 27.5 pg (27.0-32.0); MCV 88.7 FL (80.0-97.0); Mean Platelet Volume 11.8 FL (9.5-12.2); NRBC Per 100 WBC 0 X 10*3/uL (0.00-0.01); Platelet Count 217 X 10*3/uL (140-440); RBC 5.13 X 10*6/uL (4.40-5.60); RDW 14.3 % (11.5-14.5); WBC 10.95 X 10*3/uL (4.50-10.00)
[2023-08-20 02:28] LABS: Iron 62 UG/DL (65-175)
[2023-08-20 02:29] LABS: % Iron Saturation 22.38 (15.00-50.00); ALT 16 U/L (10-49); AST 19 U/L (14-35); Albumin 3.9 g/dL (3.8-4.9); Albumin/Globulin Ratio 1.39 Ratio (1.60-3.17); Alkaline Phosphatase 90 U/L (41-126); BUN/Creat Ratio 12.76 Ratio (12.00-20.00); Blood Urea Nitrogen 26.8 mg/dL (9.0-27.0); Calcium 9.4 mg/dL (8.7-10.3); Carbon Dioxide 26.5 mmol/L (21.6-31.8); Chloride 104 mmol/L (96-109); Globulin 2.8 g/dL (1.6-3.3); Glucose 157 mg/dL (70-110); Phosphorus 3.9 mg/dL (2.4-5.1); Potassium 4.7 mmol/L (3.5-5.5); Sodium 141 mmol/L (135-145); Total Bilirubin 0.3 mg/dL (0.3-1.2); Total Iron Binding Capacity 277 UG/DL (228-460); Total Protein 6.7 g/dL (6.2-8.2); Uric Acid 5.8 mg/dL (3.7-8.7)
[2023-08-20 04:17] LABS: Appearance,Urine Clear (Clear); Bilirubin,Urine Negative (Negative); Blood,Urine Negative (Negative); Color,Urine Yellow (Yellow); Ketones,Urine Negative (Negative); Nitrite,Urine Negative (Negative); Specific Gravity,Urine 1.022 (1.001-1.030); Urobilinogen,Urine 0.2 E.U./DL
[2023-08-20 04:33] LABS: Bacteria,Urine None Seen (None Seen)
[2023-08-20 05:07] LABS: Urine Creatinine 93.1 mg/dL (39.0-259.0)
== END | disposition home or self-care (01) ==
LOC: LABWHC1 15:39
PROVIDERS: ATTEND Internal Medicine Nephrology
DX: N18.32 Chronic kidney disease, stage 3b (principal); M10.9 Gout, unspecified; D63.1 Anemia in chronic kidney disease; N39.0 Urinary tract infection, site not specified; E55.9 Vitamin D deficiency, unspecified; R80.9 Proteinuria, unspecified
CPT/HCPCS: 36415; 80053; 81001; 82043; 82306; 82570; 82728; 83540; 83550; 83735; 83970; 84100; 84550; 85027

== ENCOUNTER 2023-08-31 07:07 | Day surgery (SDC) | payer MEDICARE ==
[2023-08-29 15:21] VITALS: BMI 38.2
[2023-08-31] MEDS ORDERED: LACTATED RINGERS 1,000 ML IV ONE (07:54)
[2023-08-31 08:06] LABS: Glucose,Whole Blood 120 mg/dL (70-110)
[2023-08-31] MEDS ORDERED: PROPOFOL 10 MG/ML 20 ML VIAL IV ONE (08:19)
--- NOTE | 2023-08-31 08:20 | P.GSHP ---
History of Present Illness H&P Date: 08/31/23 CHIEF COMPLAINT: Colon screen HISTORY OF PRESENT ILLNESS: The patient is a 73-year-old male who presents for colon screen. Lower endoscopy was offered for further evaluation and management. PAST MEDICAL HISTORY: Please see list. PAST SURGICAL HISTORY: Please see list. MEDICATIONS: Please see list. ALLERGIES: Please see list. SOCIAL HISTORY: No illicit drug use FAMILY HISTORY: No reports of Crohn disease or ulcerative colitis. REVIEW OF ORGAN SYSTEMS: CONSTITUTIONAL: No reports of fevers or chills. PHYSICAL EXAM: VITAL SIGNS: Stable GENERAL: Well-developed pleasant in no acute distress. HEENT: No scleral icterus. Extraocular movements grossly intact. Moist buccal mucosa. NECK: Supple without lymphadenopathy. CHEST: Unlabored respirations. Equal bilateral excursions. CARDIOVASCULAR: Regular rate and rhythm. Distal 2+ pulses. ABDOMEN: Soft, nontender, nondistended. MUSCULOSKELETAL: No clubbing, cyanosis, or edema. ASSESSMENT: 1. Colon screen. PLAN: 1. Recommend proceeding with a lower endoscopy Past Medical History Past Medical History: COPD, Diabetes Mellitus, Hypertension, Renal Disease Additional Past Medical History / Comment(s): IDDM. DERMATITIS ON UPPER ARMS, extra beat in heart per patient, ptosis both eyelids History of Any Multi-Drug Resistant Organisms: None Reported Past Surgical History: Back Surgery, Joint Replacement, Orthopedic Surgery Additional Past Surgical History / Comment(s): FX Right leg & right arm repair; Cataract surg; Colonoscopy, TRK 09/14/22 Past Anesthesia/Blood Transfusion Reactions: No Reported Reaction Additional Past Anesthesia/Blood Transfusion Reaction / Comment(s): no blood transfusion Smoking Status: Former smoker - Past Family History Father Family Medical History: Cancer Medications and Allergies Home Medications Medication Instructions Recorded Confirmed Type DULoxetine HCL [Cymbalta] 120 mg PO DAILY 10/08/16 08/29/23 History Losartan [Cozaar] 25 mg PO DAILY 10/08/16 08/29/23 History Omeprazole [PriLOSEC] 20 mg PO BID 10/08/16 08/29/23 History Tamsulosin HCl [Flomax] 0.4 mg PO DAILY 10/08/16 08/29/23 History atenoloL [Tenormin] 50 mg PO BID 10/08/16 08/31/23 History Chlorpheniramine Maleate 4 mg PO DAILY PRN 05/24/18 08/29/23 History [Chlor-Trimeton] Insulin Lispro [humaLOG Kwikpen] See Protocol SQ ACHS 05/24/18 08/31/23 History Atorvastatin Calcium [Lipitor] 40 mg PO HS 09/08/21 08/29/23 History HYDROcodone/APAP 10-325MG [Ravena 1 tab PO QID PRN 09/08/21 08/31/23 History 10-325] Insulin Glargine,Hum.rec.anlog 50 - 60 unit SQ HS 09/08/21 08/31/23 History [Lantus Solostar Pen] calcitrioL [Rocaltrol] 0.25 mcg PO MO 09/08/21 08/29/23 History tadalafiL [Cialis] 10 mg PO DAILY PRN 09/08/21 08/29/23 History Ammonium Lactate Cream [Lac-Hydrin 1 applic TOPICAL BID PRN 03/19/22 08/29/23 History 12% Cream] Artificial Tears Ointment 1 gm OPHTHALMIC HS #3.5 gm 03/19/22 08/29/23 Rx [Lubrifresh Pm Ointment] Ascorbic Acid [Vitamin C] 2,000 mg PO DAILY 03/19/22 08/29/23 History Aspirin EC [Ecotrin Low Dose] 81 mg PO DAILY 03/19/22 08/29/23 History Biotin 10,000 mcg PO DAILY 03/19/22 08/29/23 History Carboxymethylcellulose Sodium 1 drop LEFT EYE Q1HR #15 ml 03/19/22 08/31/23 Rx [Refresh Tears] Cholecalciferol [Vitamin D3 (25 50 mcg PO DAILY 03/19/22 08/29/23 History Mcg = 1000 Iu)] Cold Pressed Black Seed Oil 1 cap PO DAILY 03/19/22 08/29/23 History Elderberry Fruit and Flower [Black 1 cap PO DAILY 03/19/22 08/29/23 History Elderberry 575 mg Cap] Flaxseed Oil 300mg 300 mg PO HS 03/19/22 08/29/23 History L.acidoph,Paracasei, B.lactis 1 cap PO DAILY 03/19/22 08/29/23 History [Probiotic] Lutein 40 mg PO DAILY 03/19/22 08/29/23 History Magnesium 650mg 650 mg PO DAILY 03/19/22 08/29/23 History Melatonin 5 mg PO HS 03/19/22 08/29/23 History Mv-Min/Folic/K1/Lycopen/Lutein 1 tab PO DAILY 03/19/22 08/29/23 History [Centrum Silver Men Tablet] Super B Complex 1 cap PO DAILY 03/19/22 08/29/23 History Triamcinolone 0.1% Cream [Kenalog 1 applic TOPICAL BID PRN 03/19/22 08/31/23 History 0.1% Cream] Zinc 50 mg PO DAILY 03/19/22 08/29/23 History amLODIPine [Norvasc] 5 mg PO DAILY 03/19/22 08/29/23 History Mometasone Furoate [Nasonex 50 MCG] 1 spray NASAL DAILY PRN 09/09/22 08/29/23 History sevelamer HCL [Renagel] 800 mg PO DAILY 09/09/22 08/29/23 History HYDROcodone/APAP 7.5-325MG [Ravena 1 - 2 tab PO Q6H PRN #32 tab 09/14/22 08/29/23 Rx 7.5-325] Sennosides [Senokot] 2 tab PO DAILY PRN #60 tablet 09/14/22 08/29/23 Rx ALPRAZolam [Xanax] 0.5 mg PO HS 08/29/23 08/29/23 History Chlorpheniramine Maleate 4 mg PO DAILY 08/29/23 08/29/23 History [Chlor-Trimeton] Empagliflozin [Jardiance] 10 mg PO DAILY 08/29/23 08/29/23 History Allergies Allergy/AdvReac Type Severity Reaction Status Date / Time adhesive AdvReac Rash/Hives Verified 08/29/23 15:10 Surgical - Exam Vital Signs Temp Pulse Resp BP Pulse Ox 97.4 F L 62 20 165/73 95 08/31/23 07:41 08/31/23 07:41 08/31/23 07:41 08/31/23 07:41 08/31/23 07:41 Results - Labs Abnormal Lab Results - Last 24 Hours (Table) 08/31/23 Range/Units 07:56 POC Glucose (mg/dL) 120 H (70-110) mg/dL
[2023-08-31 08:26] VITALS: TEMP 97.4
[2023-08-31 08:54] VITALS: RESP 18
--- NOTE | 2023-08-31 09:14 | P.PCN ---
Date of Procedure: 08/31/23 Description of Procedure: PREOPERATIVE DIAGNOSIS: Colonoscopy screening Chronic renal insufficiency, stage III POSTOPERATIVE DIAGNOSIS: Tubular adenoma hepatic flexure Sigmoid diverticulosis OPERATION: Colonoscopy to the ileocecal valve and appendiceal orifice, cecum Colonoscopy with hot snare polypectomy SURGEON: Senia Lott MD. ANESTHESIA: MAC. INDICATIONS: The patient is an 73-year-old male who presents for colonoscopy screening. Benefits and risks were described and informed consent was obtained. DESCRIPTION OF PROCEDURE: The patient had undergone Suflave prep. The patient had been brought into the operating room and laid in the left lateral decubitus position. After adequate intravenous sedation, the rectum was examined with 2% lidocaine jelly. The prostate was unremarkable. External hemorrhoids were encountered. The rectal tone was within normal limits. No lesions were palpated in the rectal vault. An Olympus colonoscope was advanced until the cecum, ileocecal valve and appendiceal orifice were clearly viewed. The prep was excellent Sigmoid diverticulosis was encountered. Colonic polyps were found and removed. No evidence of focal colitis was found. Retroflexion of the scope demonstrated grade 2 internal hemorrhoids without active bleeding or inflammation. The colon was desufflated. The patient had tolerated the procedure well. Withdrawal time was over 6 minutes. FINDINGS: Aronchick preparation quality scale 1 (1-5) Internal hemorrhoids, grade 2 External hemorrhoids, grade 2 No arteriovenous malformations. Sigmoid diverticulosis, moderate to severe Removal of 1 polyps: - Snare polypectomy at hepatic flexure, 8 mm tubular adenoma No focal colitis. RECOMMENDATIONS: Repeat colonoscopy in 3 years, 2024 Plan - Discharge Summary Discharge Rx Participant: No New Discharge Prescriptions: Continue Losartan [Cozaar] 25 mg PO DAILY atenoloL [Tenormin] 50 mg PO BID Omeprazole [PriLOSEC] 20 mg PO BID Tamsulosin HCl [Flomax] 0.4 mg PO DAILY DULoxetine HCL [Cymbalta] 120 mg PO DAILY Insulin Lispro [humaLOG Kwikpen] See Protocol SQ ACHS Chlorpheniramine Maleate [Chlor-Trimeton] 4 mg PO DAILY PRN PRN Reason: Allergy Symptoms calcitrioL [Rocaltrol] 0.25 mcg PO MO Artificial Tears Ointment [Lubrifresh Pm Ointment] 1 gm OPHTHALMIC HS #3.5 gm Cholecalciferol [Vitamin D3 (25 Mcg = 1000 Iu)] 50 mcg PO DAILY Ascorbic Acid [Vitamin C] 2,000 mg PO DAILY Magnesium 650mg 650 mg PO DAILY Cold Pressed Black Seed Oil 1 cap PO DAILY Biotin 10,000 mcg PO DAILY Triamcinolone 0.1% Cream [Kenalog 0.1% Cream] 1 applic TOPICAL BID PRN PRN Reason: Rash L.acidoph,Paracasei, B.lactis [Probiotic] 1 cap PO DAILY amLODIPine [Norvasc] 5 mg PO DAILY Ammonium Lactate Cream [Lac-Hydrin 12% Cream] 1 applic TOPICAL BID PRN PRN Reason: FEET Zinc 50 mg PO DAILY HYDROcodone/APAP 7.5-325MG [Burton 7.5-325] 1 - 2 tab PO Q6H PRN #32 tab PRN Reason: Pain ALPRAZolam [Xanax] 0.5 mg PO HS Chlorpheniramine Maleate [Chlor-Trimeton] 4 mg PO DAILY Insulin Glargine,Hum.rec.anlog [Lantus Solostar Pen] 50 - 60 unit SQ HS HYDROcodone/APAP 10-325MG [Burton 10-325] 1 tab PO QID PRN PRN Reason: Pain Atorvastatin Calcium [Lipitor] 40 mg PO HS tadalafiL [Cialis] 10 mg PO DAILY PRN PRN Reason: ERECTILE DYSFUNCTION Carboxymethylcellulose Sodium [Refresh Tears] 1 drop LEFT EYE Q1HR #15 ml Melatonin 5 mg PO HS Aspirin EC [Ecotrin Low Dose] 81 mg PO DAILY Flaxseed Oil 300mg 300 mg PO HS Mv-Min/Folic/K1/Lycopen/Lutein [Centrum Silver Men Tablet] 1 tab PO DAILY Lutein 40 mg PO DAILY Super B Complex 1 cap PO DAILY Elderberry Fruit and Flower [Black Elderberry 575 mg Cap] 1 cap PO DAILY Mometasone Furoate [Nasonex 50 MCG] 1 spray NASAL DAILY PRN PRN Reason: Allergy Symptoms sevelamer HCL [Renagel] 800 mg PO DAILY Sennosides [Senokot] 2 tab PO DAILY PRN #60 tablet PRN Reason: Constipation Empagliflozin [Jardiance] 10 mg PO DAILY Discharge Medication List DULoxetine HCL [Cymbalta] 120 mg PO DAILY 10/08/16 [History] Losartan [Cozaar] 25 mg PO DAILY 10/08/16 [History] Omeprazole [PriLOSEC] 20 mg PO BID 10/08/16 [History] Tamsulosin HCl [Flomax] 0.4 mg PO DAILY 10/08/16 [History] atenoloL [Tenormin] 50 mg PO BID 10/08/16 [History] Chlorpheniramine Maleate [Chlor-Trimeton] 4 mg PO DAILY PRN 05/24/18 [History] Insulin Lispro [humaLOG Kwikpen] See Protocol SQ ACHS 05/24/18 [History] Atorvastatin Calcium [Lipitor] 40 mg PO HS 09/08/21 [History] HYDROcodone/APAP 10-325MG [Burton 10-325] 1 tab PO QID PRN 09/08/21 [History] Insulin Glargine,Hum.rec.anlog [Lantus Solostar Pen] 50 - 60 unit SQ HS 09/08/21 [History] calcitrioL [Rocaltrol] 0.25 mcg PO MO 09/08/21 [History] tadalafiL [Cialis] 10 mg PO DAILY PRN 09/08/21 [History] Ammonium Lactate Cream [Lac-Hydrin 12% Cream] 1 applic TOPICAL BID PRN 03/19/22 [History] Artificial Tears Ointment [Lubrifresh Pm Ointment] 1 gm OPHTHALMIC HS #3.5 gm 03/19/22 [Rx] Ascorbic Acid [Vitamin C] 2,000 mg PO DAILY 03/19/22 [History] Aspirin EC [Ecotrin Low Dose] 81 mg PO DAILY 03/19/22 [History] Biotin 10,000 mcg PO DAILY 03/19/22 [History] Carboxymethylcellulose Sodium [Refresh Tears] 1 drop LEFT EYE Q1HR #15 ml 03/19/22 [Rx] Cholecalciferol [Vitamin D3 (25 Mcg = 1000 Iu)] 50 mcg PO DAILY 03/19/22 [History] Cold Pressed Black Seed Oil 1 cap PO DAILY 03/19/22 [History] Elderberry Fruit and Flower [Black Elderberry 575 mg Cap] 1 cap PO DAILY 03/19/22 [History] Flaxseed Oil 300mg 300 mg PO HS 03/19/22 [History] L.acidoph,Paracasei, B.lactis [Probiotic] 1 cap PO DAILY 03/19/22 [History] Lutein 40 mg PO DAILY 03/19/22 [History] Magnesium 650mg 650 mg PO DAILY 03/19/22 [History] Melatonin 5 mg PO HS 03/19/22 [History] Mv-Min/Folic/K1/Lycopen/Lutein [Centrum Silver Men Tablet] 1 tab PO DAILY 07/31 [History] Super B Complex 1 cap PO DAILY 03/19/22 [History] Triamcinolone 0.1% Cream [Kenalog 0.1% Cream] 1 applic TOPICAL BID PRN 03/19/22 [History] Zinc 50 mg PO DAILY 03/19/22 [History] amLODIPine [Norvasc] 5 mg PO DAILY 03/19/22 [History] Mometasone Furoate [Nasonex 50 MCG] 1 spray NASAL DAILY PRN 09/09/22 [History] sevelamer HCL [Renagel] 800 mg PO DAILY 09/09/22 [History] HYDROcodone/APAP 7.5-325MG [Burton 7.5-325] 1 - 2 tab PO Q6H PRN #32 tab 09/14/22 [Rx] Sennosides [Senokot] 2 tab PO DAILY PRN #60 tablet 09/14/22 [Rx] ALPRAZolam [Xanax] 0.5 mg PO HS 08/29/23 [History] Chlorpheniramine Maleate [Chlor-Trimeton] 4 mg PO DAILY 08/29/23 [History] Empagliflozin [Jardiance] 10 mg PO DAILY 08/29/23 [History] Follow up Appointment(s)/Referral(s): Senia Lott MD [STAFF PHYSICIAN] - As Needed Patient Instructions/Handouts: *Surgery [facility] - (Anesthesia) Discharge Instructions Outpatient Surgery, Colorectal Polyps (GEN), Colonoscopy (DC), Diverticulosis Diet (GEN), Diverticulosis (ED) Activity/Diet/Wound Care/Special Instructions: Repeat colonoscopy 2 years, 2024 Discharge Disposition: HOME SELF-CARE
[2023-08-31 09:24] VITALS: BP 155/76; PULSE 76
== END 2023-08-31 09:34 | disposition home or self-care (01) ==
LOC: ORWHC2ENDO 07:07
PROVIDERS: ATTEND Surgery Plastic and Reconstructive Surgery
DX: Z12.11 Encounter for screening for malignant neoplasm of colon (principal); D12.3 Benign neoplasm of transverse colon; I12.9 Hypertensive chronic kidney disease with stage 1 through stage 4 chronic kidney disease, or unspecified chronic kidney disease; E11.22 Type 2 diabetes mellitus with diabetic chronic kidney disease; N18.30 Chronic kidney disease, stage 3 unspecified; J44.9 Chronic obstructive pulmonary disease, unspecified; K57.30 Diverticulosis of large intestine without perforation or abscess without bleeding; Z79.4 Long term (current) use of insulin; Z79.51 Long term (current) use of inhaled steroids; Z79.82 Long term (current) use of aspirin; Z79.84 Long term (current) use of oral hypoglycemic drugs; Z87.891 Personal history of nicotine dependence; Z79.899 Other long term (current) drug therapy; Z88.8 Allergy status to other drugs, medicaments and biological substances
CPT/HCPCS: 88305; 45385; J2704

== ENCOUNTER → 2023-12-05 | Outpatient (CLI) | payer MEDICARE ==
[2023-12-05 18:24] LABS: HCT 41.7 % (39.6-50.0); HGB 13.9 g/dL (13.0-17.0); MCHC 33.3 g/dL (32.0-37.0); MCV 87.1 FL (80.0-97.0); Mean Platelet Volume 12.3 FL (9.5-12.2); NRBC Per 100 WBC 0 X 10*3/uL (0.00-0.01); Platelet Count 202 X 10*3/uL (140-440); RBC 4.79 X 10*6/uL (4.40-5.60); RDW 14.4 % (11.5-14.5); WBC 9.61 X 10*3/uL (4.50-10.00)
[2023-12-05 18:58] LABS: % Iron Saturation 25.27 (15.00-50.00); ALT 13 U/L (10-49); AST 17 U/L (14-35); Albumin 3.9 g/dL (3.8-4.9); Albumin/Globulin Ratio 1.44 Ratio (1.60-3.17); Alkaline Phosphatase 90 U/L (41-126); BUN/Creat Ratio 14.48 Ratio (12.00-20.00); Blood Urea Nitrogen 30.4 mg/dL (9.0-27.0); Calcium 9.5 mg/dL (8.7-10.3); Carbon Dioxide 23.7 mmol/L (21.6-31.8); Chloride 104 mmol/L (96-109); Globulin 2.7 g/dL (1.6-3.3); Glucose 232 mg/dL (70-110); Iron 70 UG/DL (65-175); Phosphorus 3.8 mg/dL (2.4-5.1); Potassium 4.6 mmol/L (3.5-5.5); Sodium 141 mmol/L (135-145); Total Bilirubin 0.4 mg/dL (0.3-1.2); Total Iron Binding Capacity 277 UG/DL (228-460); Total Protein 6.6 g/dL (6.2-8.2); Uric Acid 5.3 mg/dL (3.7-8.7)
== END | disposition home or self-care (01) ==
LOC: LABWHC1 14:43
PROVIDERS: ATTEND Internal Medicine
DX: N18.32 Chronic kidney disease, stage 3b (principal); N39.0 Urinary tract infection, site not specified; E55.9 Vitamin D deficiency, unspecified; M10.9 Gout, unspecified; D63.1 Anemia in chronic kidney disease; R80.9 Proteinuria, unspecified
CPT/HCPCS: 36415; 80053; 82306; 82728; 83540; 83550; 83735; 83970; 84100; 84550; 85027

== ENCOUNTER → 2024-02-28 | Outpatient (CLI) | payer MEDICARE ==
--- NOTE | 2024-02-28 21:02 | US ---
EXAMINATION TYPE: US kidneys/renal and bladder DATE OF EXAM: 02/28/2024 COMPARISON: 11/02/22 CLINICAL INDICATION: Male, 74 years old with history of N18.32 CKD; CKD, 1 yr follow up EXAM MEASUREMENTS: Right Kidney: 9.8x3.3x4.2 cm Left Kidney: 10.9x5.1x5.8 cm Right Kidney: cortical thinning, 2.3x1.8x2.0cm hypoechoic area again seen cortical medullary differe ntiation maintained. Left Kidney: 3.6x3.9x3.6cm anechoic area again seen cortical medullary differentiation maintained. Bladder: wnl Bilateral Jets seen: Yes There is no evidence for hydronephrosis at this point in time. No nephrolithiasis is seen. The urina ry bladder is anechoic. Bilateral ureteral jets are seen. IMPRESSION: 1. No evidence for obstructive uropathy. 2. Bilateral apical renal cysts.
== END | disposition home or self-care (01) ==
LOC: RADUSWWP 14:05
PROVIDERS: ATTEND Internal Medicine
DX: N28.1 Cyst of kidney, acquired (principal); N18.32 Chronic kidney disease, stage 3b
CPT/HCPCS: 76770

== ENCOUNTER → 2024-03-09 | Outpatient (CLI) | payer MEDICARE ==
[2024-03-09 15:10] LABS: Basophils # (A) 0.08 X 10*3/uL (0.00-0.10); Basophils % (A) 0.8 %; Eosinophils # (A) 0.37 X 10*3/uL (0.04-0.35); Eosinophils % (A) 3.5 %; HCT 44.2 % (39.6-50.0); HGB 14.4 g/dL (13.0-17.0); Lymphocytes # (A) 2.27 X 10*3/uL (0.90-5.00); Lymphocytes % (A) 21.5 %; MCH 28.1 pg (27.0-32.0); MCHC 32.6 g/dL (32.0-37.0); MCV 86.3 FL (80.0-97.0); Mean Platelet Volume 12.3 FL (9.5-12.2); Monocytes # (A) 0.75 X 10*3/uL (0.20-1.00); Monocytes % (A) 7.1 %; NRBC Per 100 WBC 0 X 10*3/uL (0.00-0.01); Neutrophils % (A) 66.4 %; Platelet Count 214 X 10*3/uL (140-440); RBC 5.12 X 10*6/uL (4.40-5.60); RDW 14.4 % (11.5-14.5); WBC 10.54 X 10*3/uL (4.50-10.00)
[2024-03-09 16:26] LABS: % Iron Saturation 20.86 (15.00-50.00); ALT 16 U/L (10-49); AST 22 U/L (14-35); Albumin 4.1 g/dL (3.8-4.9); Albumin/Globulin Ratio 1.41 Ratio (1.60-3.17); Alkaline Phosphatase 80 U/L (41-126); BUN/Creat Ratio 13.67 Ratio (12.00-20.00); Blood Urea Nitrogen 28.7 mg/dL (9.0-27.0); Calcium 9.5 mg/dL (8.7-10.3); Carbon Dioxide 26.2 mmol/L (21.6-31.8); Chloride 104 mmol/L (96-109); Chol/HDL Ratio 7.49 Ratio; Globulin 2.9 g/dL (1.6-3.3); Glucose 134 mg/dL (70-110); Iron 63 UG/DL (65-175); LDL Cholesterol,Calculated 95.5 mg/dL (0.0-131.0); Potassium 4.6 mmol/L (3.5-5.5); Sodium 142 mmol/L (135-145); Total Bilirubin 0.3 mg/dL (0.3-1.2); Total Iron Binding Capacity 302 UG/DL (228-460); Uric Acid 6.2 mg/dL (3.7-8.7)
== END | disposition home or self-care (01) ==
LOC: LABWHC1 09:31
PROVIDERS: ATTEND Nurse Practitioner Family
DX: Z12.5 Encounter for screening for malignant neoplasm of prostate (principal); E78.5 Hyperlipidemia, unspecified; E61.1 Iron deficiency
CPT/HCPCS: 36415; 80053; 80061; 82306; 82728; 83036; 83540; 83550; 84153; 84443; 84550; 85025

== ENCOUNTER → 2024-08-14 | Outpatient (CLI) | payer MEDICARE ==
[2024-08-15 02:47] LABS: HCT 42.4 % (39.6-50.0); HGB 13.7 g/dL (13.0-17.0); MCH 27.8 pg (27.0-32.0); MCHC 32.3 g/dL (32.0-37.0); MCV 86.2 FL (80.0-97.0); NRBC Per 100 WBC 0 X 10*3/uL (0.00-0.01); Platelet Count 194 X 10*3/uL (140-440); RBC 4.92 X 10*6/uL (4.40-5.60); RDW 14.6 % (11.5-14.5); WBC 10.28 X 10*3/uL (4.50-10.00)
[2024-08-15 03:16] LABS: Appearance,Urine Clear (Clear); Bilirubin,Urine Negative (Negative); Blood,Urine Negative (Negative); Color,Urine Yellow (Yellow); Ketones,Urine Negative (Negative); Nitrite,Urine Negative (Negative); PH, Urine 5.5; Urobilinogen,Urine 0.2 E.U./DL
[2024-08-15 03:24] LABS: Bacteria,Urine None Seen (None Seen)
[2024-08-15 03:56] LABS: Urine Creatinine 69.4 mg/dL (39.0-259.0)
[2024-08-15 03:59] LABS: % Iron Saturation 20.91 (15.00-50.00); ALT 14 U/L (10-49); AST 20 U/L (14-35); Albumin 3.9 g/dL (3.8-4.9); Albumin/Globulin Ratio 1.44 Ratio (1.60-3.17); Alkaline Phosphatase 81 U/L (41-126); BUN/Creat Ratio 14.74 Ratio (12.00-20.00); Calcium 9.3 mg/dL (8.7-10.3); Carbon Dioxide 24.2 mmol/L (21.6-31.8); Chloride 106 mmol/L (96-109); Globulin 2.7 g/dL (1.6-3.3); Glucose 146 mg/dL (70-110); Iron 60 UG/DL (65-175); Magnesium 1.9 mg/dL (1.5-2.4); Phosphorus 4.1 mg/dL (2.4-5.1); Potassium 4.6 mmol/L (3.5-5.5); Sodium 142 mmol/L (135-145); Total Bilirubin 0.4 mg/dL (0.3-1.2); Total Iron Binding Capacity 287 UG/DL (228-460); Total Protein 6.6 g/dL (6.2-8.2); Uric Acid 5.3 mg/dL (3.7-8.7)
== END | disposition home or self-care (01) ==
LOC: LABWHC1 14:53
PROVIDERS: ATTEND Internal Medicine
DX: N39.0 Urinary tract infection, site not specified (principal); E55.9 Vitamin D deficiency, unspecified; N25.81 Secondary hyperparathyroidism of renal origin; M10.9 Gout, unspecified; N18.32 Chronic kidney disease, stage 3b; D63.1 Anemia in chronic kidney disease; R80.9 Proteinuria, unspecified
CPT/HCPCS: 36415; 80053; 81001; 82043; 82306; 82570; 82728; 83540; 83550; 83735; 83970; 84100; 84550; 85027

== ENCOUNTER → 2025-01-08 | Outpatient (CLI) | payer MEDICARE ==
[2025-01-08 18:30] LABS: HCT 44.3 % (39.6-50.0); HGB 14.1 g/dL (13.0-17.0); MCH 27.8 pg (27.0-32.0); MCHC 31.8 g/dL (32.0-37.0); MCV 87.4 FL (80.0-97.0); Mean Platelet Volume 12.8 FL (9.5-12.2); NRBC Per 100 WBC 0 X 10*3/uL (0.00-0.01); Platelet Count 222 X 10*3/uL (140-440); RBC 5.07 X 10*6/uL (4.40-5.60); RDW 14.4 % (11.5-14.5); WBC 10.86 X 10*3/uL (4.50-10.00)
[2025-01-08 18:51] LABS: ALT 17 U/L (10-49); AST 20 U/L (14-35); Albumin 3.9 g/dL (3.8-4.9); Albumin/Globulin Ratio 1.34 Ratio (1.60-3.17); Alkaline Phosphatase 94 U/L (41-126); BUN/Creat Ratio 14.62 Ratio (12.00-20.00); Blood Urea Nitrogen 30.7 mg/dL (9.0-27.0); Calcium 9.4 mg/dL (8.7-10.3); Carbon Dioxide 22.6 mmol/L (21.6-31.8); Chloride 106 mmol/L (96-109); Globulin 2.9 g/dL (1.6-3.3); Glucose 216 mg/dL (70-110); Phosphorus 4.4 mg/dL (2.4-5.1); Potassium 4.7 mmol/L (3.5-5.5); Sodium 142 mmol/L (135-145); Total Bilirubin 0.4 mg/dL (0.3-1.2); Total Protein 6.8 g/dL (6.2-8.2); Uric Acid 5.8 mg/dL (3.7-8.7)
[2025-01-08 19:25] LABS: % Iron Saturation 21.67 (15.00-50.00); Iron 65 UG/DL (65-175); Total Iron Binding Capacity 300 UG/DL (228-460)
[2025-01-09 03:02] LABS: Urine Creatinine 75.6 mg/dL (39.0-259.0)
[2025-01-09 03:51] LABS: Appearance,Urine Clear (Clear); Bilirubin,Urine Negative (Negative); Blood,Urine Negative (Negative); Color,Urine Yellow (Yellow); Ketones,Urine Negative (Negative); Nitrite,Urine Negative (Negative); PH, Urine 5.5; Urobilinogen,Urine 0.2 E.U./DL
[2025-01-09 04:00] LABS: Bacteria,Urine None Seen (None Seen)
== END | disposition home or self-care (01) ==
LOC: LABWHC1 14:44
PROVIDERS: ATTEND Nurse Practitioner Family
DX: N18.32 Chronic kidney disease, stage 3b (principal)
CPT/HCPCS: 36415; 80053; 81001; 82043; 82306; 82570; 82728; 83540; 83550; 83735; 83970; 84100; 84550; 85027

== ENCOUNTER → 2025-02-01 | Outpatient (CLI) | payer MEDICARE ==
--- NOTE | 2025-02-01 15:06 | US ---
EXAMINATION TYPE: US kidneys/renal and bladder DATE OF EXAM: 02/01/2025 COMPARISON: NONE CLINICAL INDICATION: Male, 75 years old with history of N18.32 CHRONIC KIDNEY DISEASE, STAGE 3B; Hx s tones. Stage 3B CKD. TECHNIQUE: Grayscale imaging of the bilateral kidneys and urinary bladder: FINDINGS: EXAM MEASUREMENTS: Right Kidney: 9.8 x 4.7 x 3.9 cm Left Kidney: 12.4 x 5.6 x 5.6 cm Right Kidney: Anechoic area seen upper pole: 2.2 x 1.9 x 2.4 cm. *Cortex appears thin Left Kidney: Anechoic area seen at mid: 3.9 x 4.6 x 4.2 cm. Bladder: Appears wnl Bilateral Jets seen: Yes No hydronephrosis or shadowing calculi involving both kidneys. Cortical thinning of the right kidney with loss of corticomedullary differentiation. Simple appearing cyst within the upper pole redemonstr ated. Corticomedullary differentiation is demonstrated involving the left kidney. Simple appearing cy st measuring 4.6 cm within the left mid kidney. The urinary bladder appears unremarkable anechoic. Bi lateral ureteral jets identified. IMPRESSION: 1. No hydronephrosis or nephrolithiasis. 2. Findings of chronic medical renal disease primarily involving the right kidney. 3. Simple appearing bilateral renal cysts redemonstrated. [facility], , 02/01/2025 3:04 PM
== END | disposition home or self-care (01) ==
LOC: RADUSWWP 14:26
PROVIDERS: ATTEND Internal Medicine
DX: N18.32 Chronic kidney disease, stage 3b (principal); N28.1 Cyst of kidney, acquired
CPT/HCPCS: 76770